=== PATIENT | female | born 1995 | race Caucasian/White ===

== ENCOUNTER → 2020-09-22 11:10 | Outpatient (BNVA) | payer OTHER, SELFPAY | PROVIDERS: PCP Internal Medicine; Visit Provider Advanced Practice Midwife ==

== ENCOUNTER → 2020-10-20 12:50 | Outpatient (BNVA) | payer OTHER, SELFPAY | PROVIDERS: PCP Internal Medicine; Visit Provider Advanced Practice Midwife | DX: Z30.42 Encounter for surveillance of injectable contraceptive (principal) | CPT/HCPCS: 96372; 99211 ==

== ENCOUNTER → 2021-01-06 14:50 | Outpatient (BNVA) | payer OTHER, SELFPAY | PROVIDERS: PCP Internal Medicine; Visit Provider Advanced Practice Midwife | DX: Z30.42 Encounter for surveillance of injectable contraceptive (principal) | CPT/HCPCS: 96372; 99211 ==

== ENCOUNTER 2021-12-28 16:02 | Outpatient (REF) | payer OTHER, SELFPAY ==
[2021-12-29 17:24] LABS: CT PCR NOT DETECTED (Not Detect.); NG PCR NOT DETECTED (Not Detect.)
== END 2021-12-28 16:03 | disposition home or self-care (01) ==
LOC: HO.LNP 16:02
PROVIDERS: Visit Provider Advanced Practice Midwife
DX: Z11.3 Encounter for screening for infections with a predominantly sexual mode of transmission (principal); Z20.2 Contact with and (suspected) exposure to infections with a predominantly sexual mode of transmission
CPT/HCPCS: 87491; 87591

== ENCOUNTER 2022-03-16 09:00 | Outpatient (REF) | payer OTHER, SELFPAY ==
[2022-03-16 09:18] LABS: MANUAL DIFF FLAG NO
[2022-03-16 09:36] LABS: Basophils Absolute Auto 0.1 X10*3/uL (0.0-0.2); Basophils Percent Auto 0.5 % (0-2); Eosinophils Absolute Auto 0.1 X10*3/uL (0.0-0.4); Hematocrit 40.6 % (37.0-47.0); Hemoglobin 13.5 g/dl (12.0-16.0); Imm Gran Abs Auto 0.04 X10*3/uL (0.00-0.03); Imm Gran Pct Auto 0.3 % (0.0-0.4); Lymphocytes Absolute Auto 1.2 X10*3/uL (1.2-4.9); Lymphocytes Percent Auto 8.9 % (20-40); Mean Corpuscular HGB Conc 33.3 g/dl (31.0-35.0); Mean Corpuscular Hemoglobin 29.3 pg (27.0-33.0); Mean Corpuscular Volume 88.3 fL (80.0-98.0); Mean Platelet Volume 10.3 fL (9.4-12.3); Monocytes Absolute Auto 0.5 X10*3/uL (0.1-1.2); Monocytes Percent Auto 3.8 % (2-11); Neutrophils Absolute Auto 11.3 x10*3/uL (2.0-8.3); Neutrophils Percent Auto 85.5 % (45-73); Platelet Count 255 X10*3/uL (160-400); Red Cell Distribution Width 13.1 % (11.0-16.0); White Blood Count 13.2 X10*3/uL (4.8-10.8)
[2022-03-16 10:35] LABS: Chloride 110 mmol/L (96-108); Potassium 4.1 mmol/L (3.3-5.1); Sodium 140 mmol/L (135-145)
[2022-03-16 10:50] LABS: Anion Gap 15 (12-20)
[2022-03-16 10:54] LABS: Alanine Aminotransferase 21 U/L (0-31); Albumin Level 3.9 g/dL (3.5-5.0); Alkaline Phosphatase 100 U/L (39-117); Aspartate Amino Transferase 16 U/L (5-31); Bilirubin Total 0.7 mg/dL (0.0-1.0); Blood Urea Nitrogen 14 mg/dL (9-16); Calcium 8.9 mg/dL (8.4-10.2); Carbon Dioxide 20 mmol/L (22-29); Cholesterol 180 mg/dL; Estimated Glomerular Filt Rate > 60; Glucose Fasting 96 mg/dL (60-99); HDL Cholesterol 37 mg/dL; LDL Cholesterol Calculated 118 mg/dl; Triglycerides 126 mg/dL
[2022-03-16 11:06] LABS: TSH reflex Free T4 1.45 uIU/mL (0.32-4.0)
[2022-03-17 08:57] LABS: Syphilis Screen Nonreactive (Nonreactive)
[2022-03-17 09:06] LABS: HBc Num1 0.08 S/CO (0.00-0.79); HIV AB/AG Nonreactive (Nonreactive); HIV Num 1 0.06 S/CO (0.00-0.99); Hepatitis B Core Antibody Nonreactive (Nonreactive); ~HepC Num1 0.06 S/CO (0.00-0.79); ~Hepatitis C Antibody Nonreactive (Nonreactive)
== END 2022-03-16 09:01 | disposition home or self-care (01) ==
LOC: HO.LAB 09:00
PROVIDERS: Absent Provider Internal Medicine; PCP Internal Medicine; Visit Provider Advanced Practice Midwife
DX: Z11.4 Encounter for screening for human immunodeficiency virus [HIV] (principal); K64.9 Unspecified hemorrhoids; K58.9 Irritable bowel syndrome, unspecified; E66.01 Morbid (severe) obesity due to excess calories; Z20.2 Contact with and (suspected) exposure to infections with a predominantly sexual mode of transmission; Z76.89 Persons encountering health services in other specified circumstances
CPT/HCPCS: 36415; 80053; 80061; 84443; 85025; 86704; 86780; 86803; 87389

== ENCOUNTER 2022-07-13 08:56 | Outpatient (REF) | payer OTHER, SELFPAY ==
[2022-07-14 04:33] LABS: Syphilis Screen Nonreactive (Nonreactive)
[2022-07-14 04:48] LABS: HIV AB/AG Nonreactive (Nonreactive); HIV Num 1 0.08 S/CO (0.00-0.99)
[2022-07-14 18:39] LABS: Herpes Simplex Type 1 IgG <0.90 index; Herpes Simplex Type 2 IgG <0.90 index
== END 2022-07-13 08:57 | disposition home or self-care (01) ==
LOC: HO.LAB 08:56
PROVIDERS: PCP Internal Medicine; Visit Provider Internal Medicine
DX: Z11.3 Encounter for screening for infections with a predominantly sexual mode of transmission (principal); Z11.4 Encounter for screening for human immunodeficiency virus [HIV]; Z20.2 Contact with and (suspected) exposure to infections with a predominantly sexual mode of transmission
CPT/HCPCS: 36415; 86695; 86696; 86780; 87389

== ENCOUNTER 2022-12-12 14:38 | Outpatient (AMB) | payer OTHER, SELFPAY ==
[2022-12-12 14:50] VITALS: BP 124/76; PULSE 95; O2SAT 98; BMI 55.5
--- NOTE | 2022-12-12 14:50 | A.OFFPC_ITS ---
Vital Signs 12/12/22 14:50 Height 5 ft 2 in Weight 303 lb 6 oz BMI 55.5 BP 124/76 Blood Pressure Location Rt radial Position Sitting Pulse 95 Pulse Source Pulse Oximeter Pulse Oximetry (%) 98 Oxygen Delivery Method Room Air Intake Visit Reasons: Hemorrhoids Allergies No Known Allergies Allergy (Verified 12/12/22 14:51) Medication List - Last Reconciled 12/12/22 by Huong Aceves MD buspirone 5 mg PO BID PRN 90 days cetirizine (Zyrtec) 10 mg PO DAILY 90 days cyclobenzaprine 5 mg PO ONCE PRN meloxicam 15 mg PO DAILY Tobacco use date assessed: 12/12/22 Dental Screening Dental Screen Date: 12/12/22 Did you have a dental visit in the last 12 months?: Yes Did you have a dental problem in the last 6 months where you did not have access to dental care?: No Was dental information given to patient?: Patient has dentist HPI Hemorrhoids HPI Details Patient is 27-year-old female with a history of hemorrhoids Having flare up, patient says that she was having bleeding initially but not anymore and it is not as uncomfortable as it was before She bought [id number] which his will pads which is helping her. She is also using preparation H. On examination she has small external hemorrhoid which does not seem to be thrombosed however exam was difficult because of body habitus I have sent rectal steroid suppositories, she may use does until back to [facility] Also Sitz baths will help with discomfort Most importantly she needs to avoid constipation by adding fiber to diet and drinking more water PFSH Medical History LGSIL on Pap smear of cervix Morbid obesity Surgical History Hx of section Family History Sister Acute Crohn's disease Sister Diabetes Social History Housing: House Alcohol intake: current Alcohol intake frequency: holidays/special occasions only Patient Tobacco Use Status: Never used Tobacco e-Cigarette/Vaping Use: Never Used service: No Current occupational status: employed Sexual orientation: Straight/Heterosexual Gender identity: Female Cognitive needs: No Hearing needs: No Vision needs: No Questionnaire Thrive Questionnaire Date Thrive assessed: 03/24/22 AUDIT C Alcohol Use Questionnaire (AUDIT-C) 1. How often do you have a drink containing alcohol?: Never 3. How often do you have six or more drinks on one occasion?: Never Total Score: 0 Score Reviewed/Action Taken: Yes MARTHA-7 AMB Questionnaire MARTHA-7 Date MARTHA - 7 assessed: 03/24/22 Source: Developed by Drs. Robert Galaviz, Jenna Gamino, Chase Fonseca and colleagues, with an educational heather from [employer]. Review of Systems Const All systems reviewed & are unremarkable except as noted in HPI and below Physical exam (Primary Care) Vital Signs: Last Vital Signs Pulse 95 12/12/22 14:50 BP 124/76 12/12/22 14:50 Pulse Ox 98 12/12/22 14:50 Oxygen Delivery Method Room Air 12/12/22 14:50 BMI result Body Mass Index 55.5 Tobacco/Smoking Status: Tobacco use Status Tobacco use date assessed 12/12/22 12/12/22 14:51 Patient Tobacco Use Status Never used Tobacco 12/12/22 14:51 e-Cigarette/Vaping Use Never Used 12/12/22 14:51 Thrive Assessment: Date of Thrive Assessment Date Thrive assessed 03/24/22 12/12/22 14:51 Const General: no acute distress Orientation/consciousness: patient oriented x3 Eyes General: appearance normal, both eyes and all related structures Resp Effort & Inspection: normal respiratory effort and able to speak in complete sentences Auscultation: clear to auscultation bilaterally GI Rectal Exam - Female: External hemorrhoid(s) present (Small nonthrombosed) Neuro General: patient oriented x3 Psych Mental Status: mental status grossly normal Assessment and Plan Assessment & Plan (1) External hemorrhoids: Code(s): K64.4 - Residual hemorrhoidal skin tags (2) Morbid obesity due to excess calories: Code(s): E66.01 - Morbid (severe) obesity due to excess calories Plan Patient is 27-year-old female with a history of hemorrhoids Having flare up, patient says that she was having bleeding initially but not anymore and it is not as uncomfortable as it was before She bought [id number] which his will pads which is helping her. She is also using preparation H. On examination she has small external hemorrhoid which does not seem to be thrombosed however exam was difficult because of body habitus Patient have a BMI of 55.5 I have sent rectal steroid suppositories, she may use does until back to baseline Also Sitz baths will help with discomfort Most importantly she needs to avoid constipation by adding fiber to diet and drinking more water Medications: New hydrocortisone acetate 25 mg IN BID 12 ea 0RF 6 days K64.4 - Residual hemorrhoidal skin tags Coding Level of Care Code Est Pt Level 3 (43111) Diagnoses External hemorrhoids K64.4 Morbid obesity due to excess calories E66.01
== END 2022-12-12 15:02 | disposition home or self-care (01) ==
PROVIDERS: PCP Internal Medicine; Visit Provider Internal Medicine
DX: K64.4 Residual hemorrhoidal skin tags (principal); E66.01 Morbid (severe) obesity due to excess calories; Z68.43 Body mass index [BMI] 50.0-59.9, adult
CPT/HCPCS: 99213

== ENCOUNTER 2023-01-03 08:28 | Outpatient (AMB) | payer OTHER, SELFPAY ==
--- NOTE | 2023-01-03 08:28 | A.OFFPC_ITS ---
Intake Visit Reasons: 6 month f/u [phone] Allergies No Known Allergies Allergy (Verified 01/03/23 08:28) Medication List - Last Reconciled 01/03/23 by Huong Aceves MD buspirone 5 mg PO BID PRN 90 days cetirizine (Zyrtec) 10 mg PO DAILY 90 days cyclobenzaprine 5 mg PO ONCE PRN hydrocortisone acetate 25 mg [place] BID 6 days meloxicam 15 mg PO DAILY Tobacco use date assessed: 01/03/23 Dental Screening Dental Screen Date: 01/03/23 Did you have a dental visit in the last 12 months?: Yes Did you have a dental problem in the last 6 months where you did not have access to dental care?: No Was dental information given to patient?: Patient has dentist HPI 6 month f/u [phone] HPI Details It is 27-year-old female who was recently seen secondary to bleeding up of hemorrhoids She says that she is feeling better now the pain is gone. Patient is making sure that she does not get constipation Anxiety: Patient is on buspirone 5 mg that she is taking 1 every day and sometimes she take it 1 more later in the day Back spasms are stable patient is on cyclobenzaprine only as needed. She also have couple of tablets of meloxicam leftover but she does not needed at this time. Allergies are stable with cetirizine She tells me that she has joined the gym and already lost 30 lb. And gym activities also helping her with anxiety Patient is morbidly obese and she is trying to lose weight. She has physical exam appointment in March she will be seen at that time. [facility] Medical History LGSIL on Pap smear of cervix Morbid obesity Surgical History Hx of section Family History Sister Acute Crohn's disease Sister Diabetes Social History Housing: House Alcohol intake: current Alcohol intake frequency: holidays/special occasions only Patient Tobacco Use Status: Never used Tobacco e-Cigarette/Vaping Use: Never Used service: No Current occupational status: employed Sexual orientation: Straight/Heterosexual Gender identity: Female Cognitive needs: No Hearing needs: No Vision needs: No Questionnaire PHQ-9 Over the last 2 weeks, how often have you been bothered by any of the following problems? 1. Little interest or pleasure in doing things: not at all 2. Feeling down, depressed, or hopeless: not at all 3. Trouble falling or staying asleep, or sleeping too much: not at all 4. Feeling tired or having little energy: not at all 5. Poor appetite or overeating: not at all 6. Feeling bad about yourself - or that you are a failure or have let yourself or your family down: not at all 7. Trouble concentrating on things, such as reading the newspaper or watching television: not at all 8. Moving or speaking so slowly that other people could have noticed. Or the opposite - being so fidgety or restless that you have been moving around a lot more than usual: not at all 9. Thoughts that you would be better off or of hurting yourself in some way: not at all Total score: 0 Depression Screening Interpretation: Negative Depression Screening Done: Yes 04669 - PHQ-9 Billing: Yes Source: Developed by Drs. Robert Galaviz, Chase Johnson and colleagues, with an educational heather from [employer]. Thrive Questionnaire Date Thrive assessed: 03/24/22 AUDIT C Alcohol Use Questionnaire (AUDIT-C) 1. How often do you have a drink containing alcohol?: Never 3. How often do you have six or more drinks on one occasion?: Never Total Score: 0 Score Reviewed/Action Taken: Yes MARTHA-7 AMB Questionnaire MARTHA-7 Date MARTHA - 7 assessed: 03/24/22 Source: Developed by Jenna Feldman Kurt Kroenke and colleagues, with an educational heather from [employer]. Review of Systems Const Denies chills and Denies fever(s) ENT Denies epistaxis and Denies nasal discharge Card Denies chest pain Resp Denies chest congestion, Denies cough and Denies hemoptysis GI Denies diarrhea and Denies nausea Skin/Breast Denies rash Neuro Reports no additional complaints Psych Reports no additional complaints Endo Reports no additional complaints Physical exam (Primary Care) Tobacco/Smoking Status: Tobacco use Status Tobacco use date assessed 01/03/23 01/03/23 08:29 Patient Tobacco Use Status Never used Tobacco 01/03/23 08:29 e-Cigarette/Vaping Use Never Used 01/03/23 08:29 Depression Screening Interpretation: Negative Thrive Assessment: Date of Thrive Assessment Date Thrive assessed 03/24/22 01/03/23 08:29 Telehealth Telehealth Location of provider rendering services: practice address Location of patient: address on file Patient Identification confirmed using: Name, : Yes Telehealth method: video Patient verbally consented to treatment: Yes Patient verbally consented to billing insurance company: Yes Patient informed of any privacy concerns related to visit: Yes Minutes spent on Phone/Video with Pt.: 14 Assessment and Plan Assessment & Plan (1) Anxiety, generalized: Code(s): F41.1 - Generalized anxiety disorder (2) Morbid obesity due to excess calories: Code(s): E66.01 - Morbid (severe) obesity due to excess calories (3) External hemorrhoids: Code(s): K64.4 - Residual hemorrhoidal skin tags (4) Environmental allergies: Code(s): Z91.09 - Other allergy status, other than to drugs and biological substances (5) Muscle spasm: Code(s): M62.838 - Other muscle spasm Plan It is 27-year-old female who was recently seen secondary to bleeding up of hemorrhoids She says that she is feeling better now the pain is gone. Patient is making sure that she does not get constipation Anxiety: Patient is on buspirone 5 mg that she is taking 1 every day and sometimes she take it 1 more later in the day Back spasms are stable patient is on cyclobenzaprine only as needed. She also have couple of tablets of meloxicam leftover but she does not needed at this time. Allergies are stable with cetirizine She tells me that she has joined the gym and already lost 30 lb. And gym activities also helping her with anxiety Patient is morbidly obese and she is trying to lose weight. She has physical exam appointment in March she will be seen at that time. Medications: Refilled hydrocortisone acetate 25 mg [place] BID 12 ea 0RF 6 days K64.4 - Residual hemorrhoidal skin tags Coding Level of Care Code Tele Est Pt Level 3 (10339) Diagnoses Anxiety, generalized F41.1 Morbid obesity due to excess calories E66.01 External hemorrhoids K64.4 Environmental allergies Z91.09 Muscle spasm M62.838
== END 2023-01-03 13:00 | disposition home or self-care (01) ==
LOC: HO.HMGC 08:28
PROVIDERS: PCP Internal Medicine; Visit Provider Internal Medicine
DX: F41.1 Generalized anxiety disorder (principal); E66.01 Morbid (severe) obesity due to excess calories; K64.4 Residual hemorrhoidal skin tags; Z91.09 Other allergy status, other than to drugs and biological substances; M62.838 Other muscle spasm
CPT/HCPCS: 99213

== ENCOUNTER 2023-02-06 10:15 | Outpatient (AMB) | payer OTHER, SELFPAY ==
--- NOTE | 2023-02-06 11:36 | MHC.OFFWIV ---
Intake Vital Signs 02/06/23 11:37 Height 5 ft 2 in Weight 295 lb BMI 54.0 BP 118/70 Blood Pressure Location Lt brachial Position Sitting Pulse 84 Pulse Source Pulse Oximeter Temp 96.8 F Temp Source Temporal Artery Scan Pulse Oximetry (%) 98 Oxygen Delivery Method Room Air Intake Visit Reasons: EP cough stuffy nose throat pain Intake Note: pt is here today for cough stuffy nose and throat pain Patient Tobacco Use Status: Never used Tobacco Allergies No Known Allergies Allergy (Verified 02/06/23 11:37) Do you need a note to return to daycare/school/sports/work: Yes HPI EP cough stuffy nose throat pain HPI Details Patient presents for a sick visit. Reporting symptoms of sinus congestion, sore throat and difficulty swallowing. Low-grade fever. No family member is sick. No recent travel. Patient reports symptoms of malaise and fatigue. [facility] Medical History LGSIL on Pap smear of cervix Morbid obesity Surgical History Hx of section Family History Sister Acute Crohn's disease Sister Diabetes Social History Housing: House Alcohol intake: current Alcohol intake frequency: holidays/special occasions only Patient Tobacco Use Status: Never used Tobacco e-Cigarette/Vaping Use: Never Used service: No Current occupational status: employed Sexual orientation: Straight/Heterosexual Gender identity: Female Cognitive needs: No Hearing needs: No Vision needs: No Physical Exam Vital Signs: Last Vital Signs Temp 96.8 F 02/06/23 11:37 Pulse 84 02/06/23 11:37 BP 118/70 02/06/23 11:37 Pulse Ox 98 02/06/23 11:37 Oxygen Delivery Method Room Air 02/06/23 11:37 BMI result Body Mass Index 54.0 Const General: cooperative and healthy appearing Nutritional Appearance: well nourished Orientation/consciousness: patient oriented x3 Limitations: no limitations HEENT Head: Yes normal to inspection Eyes General: appearance normal, both eyes and all related structures Neck Neck: Yes normal visual inspection Chest Chest palpation & inspection: normal palpation of entire chest wall Resp Effort & Inspection: normal respiratory effort Neuro General: patient oriented x3 Results AMB Rapid Strep AMB Rapid Strep Negative Last Edit by Tre Mascorro CMA on 02/06/23 11:54 Results Reviewed Results Reviewed: Laboratory Last Values Strep Scn Rapid Clinic Negative 02/06/23 11:53 Assessment & Plan Assessment & Plan (1) Upper respiratory tract infection: Code(s): J06.9 - Acute upper respiratory infection, unspecified Plan: Self-limiting illness. No antibiotics needed. If symptoms do not improve to follow-up here. Orders: Orders AMB Rapid Strep Screen Today Z13.9 - Encounter for screening, unspecified SARS-CoV2/FLU/RSV Today R43.9 - Unspecified disturbances of smell and taste Coding Level of Care Code Est Pt Level 3 (12351) Diagnoses Upper respiratory tract infection J06.9
[2023-02-06 11:37] VITALS: BP 118/70; PULSE 84; TEMP 36; O2SAT 98; BMI 54.0
== END 2023-02-06 12:39 | disposition home or self-care (01) ==
PROVIDERS: PCP Internal Medicine
DX: Z13.9 Encounter for screening, unspecified (principal); J06.9 Acute upper respiratory infection, unspecified
CPT/HCPCS: 87880; 99213

== ENCOUNTER 2023-02-06 14:03 | Outpatient (REF) | payer OTHER, SELFPAY ==
[2023-02-06 15:30] LABS: Influenza A PCR POSITIVE (Negative); Influenza B PCR NEGATIVE (Negative); Resp Syncy Virus RNA Qual PCR NEGATIVE (Negative); SARS COV2 PCR INHOUSE NEGATIVE (Negative)
== END 2023-02-06 14:04 | disposition home or self-care (01) ==
LOC: HO.HMGCLNP 14:03
PROVIDERS: Visit Provider Internal Medicine
DX: Z11.52 Encounter for screening for COVID-19 (principal); R43.9 Unspecified disturbances of smell and taste
CPT/HCPCS: 0241U

== ENCOUNTER 2023-03-21 11:54 | Outpatient (AMB) | payer OTHER, SELFPAY ==
--- NOTE | 2023-03-21 11:55 | A.OFFPC_ITS ---
Vital Signs 03/21/23 11:55 Height 5 ft 2 in Intake Visit Reasons: Referral Req~ [phone] Allergies No Known Allergies Allergy (Verified 03/21/23 11:55) Medication List - Last Reconciled 03/21/23 by Huong Aceves MD albuterol sulfate 90 mcg/actuation (ProAir HFA) 1 inh inhalation QID PRN 30 days buspirone 5 mg PO BID PRN 90 days cetirizine (Zyrtec) 10 mg PO DAILY 90 days cyclobenzaprine 5 mg PO ONCE PRN Tobacco use date assessed: 03/21/23 Dental Screening Dental Screen Date: 03/21/23 Did you have a dental visit in the last 12 months?: Yes Did you have a dental problem in the last 6 months where you did not have access to dental care?: No Was dental information given to patient?: Patient has dentist HPI Referral Req~ [phone] HPI Details Patient is 27-year-old female who suffers off and the flare-up Currently patient is having discomfort because of hemorrhoidal pain. She is requesting a script for to jaylen and a referral to Jeff Bowie at [facility] General Surgical Care I have sent cortisone anal suppositories and lidocaine cream for discomfort There is no bleeding, patient says that she is feeling slightly better today. [facility] Medical History LGSIL on Pap smear of cervix Morbid obesity Surgical History Hx of section Family History Sister Acute Crohn's disease Sister Diabetes Social History Housing: House Alcohol intake: current Alcohol intake frequency: holidays/special occasions only Patient Tobacco Use Status: Never used Tobacco e-Cigarette/Vaping Use: Never Used service: No Current occupational status: employed Sexual orientation: Straight/Heterosexual Gender identity: Female Cognitive needs: No Hearing needs: No Vision needs: No Questionnaire PHQ-9 Over the last 2 weeks, how often have you been bothered by any of the following problems? 1. Little interest or pleasure in doing things: not at all 2. Feeling down, depressed, or hopeless: not at all 3. Trouble falling or staying asleep, or sleeping too much: not at all 4. Feeling tired or having little energy: not at all 5. Poor appetite or overeating: not at all 6. Feeling bad about yourself - or that you are a failure or have let yourself or your family down: not at all 7. Trouble concentrating on things, such as reading the newspaper or watching television: not at all 8. Moving or speaking so slowly that other people could have noticed. Or the opposite - being so fidgety or restless that you have been moving around a lot more than usual: not at all 9. Thoughts that you would be better off or of hurting yourself in some way: not at all Total score: 0 Depression Screening Interpretation: Negative Depression Screening Done: Yes 25924 - PHQ-9 Billing: Yes Source: Developed by Drs. Robert Galaviz, Jenna Gamino, Chase Fonseca and colleagues, with an educational heather from [employer]. Thrive Questionnaire Date Thrive assessed: 03/21/23 I am a: Patient What is your living situation today?: I have a steady place to live Within the past 12 months, did the food you bought not last and you didn't have the money to get more?: Never true Within the past 12 months, did you worry whether your food would run out before you got money to buy more?: Never true Do you have trouble paying for medicines?: No Do you have trouble getting transportation to medical appointments?: No Do you have trouble paying your heating and electricity bill?: No Do you have trouble taking care of your child, family member or friend?: No Do you have trouble with day-to-day activities such as bathing, preparing meals, shopping, managing finances, etc.?: No Are you currently unemployed and looking for a job?: No Are you interested in more education?: No Please select the resources that you would like help with: None Currently or been in a relationship where the following occur: no concerns reported AUDIT C Alcohol Use Questionnaire (AUDIT-C) 1. How often do you have a drink containing alcohol?: Never 3. How often do you have six or more drinks on one occasion?: Never Total Score: 0 Score Reviewed/Action Taken: Yes MARTHA-7 AMB Questionnaire MARTHA-7 Date MARTHA - 7 assessed: 03/21/23 Feeling nervous, anxious, or on edge: 1 = Several days Not being able to stop or control worryin = Not at all Worrying too much about different things: 1 = Several days Trouble relaxin = Not at all Being so restless that it is hard to sit still: 0 = Not at all Becoming easily annoyed or irritable: 0 = Not at all Feeling afraid as if something awful might happen: 0 = Not at all Total MARTHA-7 score (0-4 normal; 5-9 mild; 10-14 moderate; 15-21 severe): 2 Source: Developed by Drs. Robert Galaviz, Jenna Gamino, Chase Fonseca and colleagues, with an educational heather from [employer]. MARTHA-7 Assessment Billing MARTHA-7 Assessment Tool: MARTHA-7 Assessment 69448 Review of Systems Const Denies chills and Denies fever(s) ENT Denies epistaxis and Denies nasal discharge Card Denies chest pain Resp Denies chest congestion, Denies cough and Denies hemoptysis GI Denies nausea Skin/Breast Denies rash Neuro Reports no additional complaints Psych Reports no additional complaints Endo Reports no additional complaints Physical exam (Primary Care) Tobacco/Smoking Status: Tobacco use Status Tobacco use date assessed 03/21/23 03/21/23 11:58 Patient Tobacco Use Status Never used Tobacco 03/21/23 11:58 e-Cigarette/Vaping Use Never Used 03/21/23 11:58 PHQ-9: PHQ-9 Score PHQ-9: Total score 0 03/21/23 12:12 Depression Screening Interpretation: Negative Thrive Assessment: Date of Thrive Assessment Date Thrive assessed 03/21/23 03/21/23 11:59 Currently or been in a relationship where the following occur: no concerns reported Telehealth Telehealth Location of provider rendering services: practice address Location of patient: address on file Patient Identification confirmed using: Name, : Yes Telehealth method: video Patient verbally consented to treatment: Yes Patient verbally consented to billing insurance company: Yes Patient informed of any privacy concerns related to visit: Yes Minutes spent on Phone/Video with Pt.: 13 Assessment and Plan Assessment & Plan (1) External hemorrhoids: Code(s): K64.4 - Residual hemorrhoidal skin tags Plan Patient is 27-year-old female who suffers off and the flare-up Currently patient is having discomfort because of hemorrhoidal pain. She is requesting a script for to jaylen and a referral to Jeff Bowie at [facility] General Surgical Care I have sent cortisone anal suppositories and lidocaine cream for discomfort There is no bleeding, patient says that she is feeling slightly better today. Orders: Referrals General Surgery Referral K64.4 - Residual hemorrhoidal skin tags Medications: New [donut cushion] As directed 1 ea 0RF K64.4 - Residual hemorrhoidal skin tags lidocaine-prilocaine 2.5-2.5 % 1 appl topical ONCE 30 grams 0RF 30 days [donut cushion] As directed 1 ea 0RF K64.4 - Residual hemorrhoidal skin tags hydrocortisone acetate 25 mg [place] BID 12 ea 0RF 6 days K64.4 - Residual hemorrhoidal skin tags diclofenac sodium 75 mg PO BID 20 tabs 0RF pain 10 days Coding Level of Care Code Est Pt Level 3 (93285) Diagnoses External hemorrhoids K64.4 Additional Codes MARTHA-7 Assessment Billing - MARTHA-7 Assessment Tool: MARTHA-7 Assessment [id number] ([id number])
== END 2023-03-21 13:43 | disposition home or self-care (01) ==
LOC: HO.HMGC 11:54
PROVIDERS: PCP Internal Medicine; Visit Provider Internal Medicine
DX: K64.4 Residual hemorrhoidal skin tags (principal)
CPT/HCPCS: 99213

== ENCOUNTER 2023-03-27 08:30 | Outpatient (AMB) | payer OTHER, SELFPAY ==
--- NOTE | 2023-03-27 08:33 | MHC.OFFWIV ---
Intake Intake Visit Reasons: Annual PE Patient Tobacco Use Status: Never used Tobacco Allergies No Known Allergies Allergy (Verified 03/21/23 11:55) PFSH Medical History LGSIL on Pap smear of cervix Morbid obesity Surgical History Hx of section Family History Sister Acute Crohn's disease Sister Diabetes Social History Housing: House Alcohol intake: current Alcohol intake frequency: holidays/special occasions only Patient Tobacco Use Status: Never used Tobacco e-Cigarette/Vaping Use: Never Used service: No Current occupational status: employed Sexual orientation: Straight/Heterosexual Gender identity: Female Cognitive needs: No Hearing needs: No Vision needs: No Coding
[2023-03-27 08:34] VITALS: BP 122/78; PULSE 81; O2SAT 99; BMI 53.2
--- NOTE | 2023-03-27 08:35 | MHC.PC.OV ---
Vital Signs 03/27/23 08:34 Height 5 ft 2 in Weight 291 lb BMI 53.2 BP 122/78 Blood Pressure Location Rt brachial Position Sitting Pulse 81 Pulse Oximetry (%) 99 Oxygen Delivery Method Room Air Intake Visit Reasons: Annual PE Accompanied by: Self / Same As Patient Allergies No Known Allergies Allergy (Verified 03/27/23 08:35) Medication List - Last Reconciled 03/27/23 by Huong Aceves MD albuterol sulfate 90 mcg/actuation (ProAir HFA) 1 inh inhalation QID PRN 30 days buspirone 5 mg PO BID PRN 90 days cetirizine (Zyrtec) 10 mg PO DAILY 90 days cyclobenzaprine 5 mg PO ONCE PRN diclofenac sodium 75 mg PO BID 10 days [donut cushion As directed] hydrocortisone acetate 25 mg ME BID 6 days lidocaine-prilocaine 2.5-2.5 % 1 appl topical ONCE 30 days Tobacco use date assessed: 03/21/23 Dental Screening Dental Screen Date: 03/27/23 Did you have a dental visit in the last 12 months?: Yes Did you have a dental problem in the last 6 months where you did not have access to dental care?: No Was dental information given to patient?: Patient has dentist HPI Annual PE HPI Details Patient is 27-year-old female came in today for physical examination Patient is dealing with flare-up of her hemorrhoids she has appointment with rectal specialist tomorrow she is feeling much better compared to last week OBGYN appointment coming up December of this year patient is seeing OBGYN every 2 years Pap smear and breast exam through them Lab order placed to be done fasting Patient have eczema she is requesting a cream for that which I have sent She also have a large skin tag left side and right side close to her neck which is causing irritation, Dermatology appointment request of placed. Medication patient is taking are Buspirone for anxiety Zyrtec for allergies Flexeril for muscle spasms off and on I have also sent MiraLax for her to regulate her bowels Patient have IBS which is mix diarrhea and constipation alternating Follow-up 4 months Physical exam 1 year [facility] Medical History LGSIL on Pap smear of cervix Morbid obesity Surgical History Hx of section Family History Sister Acute Crohn's disease Sister Diabetes Social History Housing: House Alcohol intake: current Alcohol intake frequency: holidays/special occasions only Patient Tobacco Use Status: Never used Tobacco e-Cigarette/Vaping Use: Never Used service: No Current occupational status: employed Sexual orientation: Straight/Heterosexual Gender identity: Female Cognitive needs: No Hearing needs: No Vision needs: No Questionnaire Thrive Questionnaire Date Thrive assessed: 03/21/23 MARTHA-7 AMB Questionnaire MARTHA-7 Date MARTHA - 7 assessed: 03/21/23 Source: Developed by Drs. Robert Galaviz, Jenna Gamino, Chase Fonseca and colleagues, with an educational heather from [employer]. Review of Systems Const Denies chills, Denies fever(s) and Denies headache(s) Eyes Denies blurry vision ENT Denies headache(s), Denies nasal discharge, Denies nasal obstruction, Denies odynophagia and Denies sinus pain Card Denies chest pain at rest and Denies chest pain with activity Resp Denies cough and Denies hemoptysis GI Denies odynophagia, Denies vomiting and Denies hematemesis Reports as per HPI Musc Denies abnormal gait Skin/Breast Reports as per HPI Neuro Denies Neuro-related abnormal movements, Denies Abnormal speech present, Denies abnormal gait, Denies headache(s) and Denies Sensory deficit (Neuro) Psych Denies mood swings and Denies paranoia Endo Reports as per HPI Daniel/Lymph Reports as per HPI Aller/Immun Reports as per HPI Physical exam (Primary Care) Vital Signs: Last Vital Signs Pulse 81 03/27/23 08:34 BP 122/78 03/27/23 08:34 Pulse Ox 99 03/27/23 08:34 Oxygen Delivery Method Room Air 03/27/23 08:34 BMI result Body Mass Index 53.2 Tobacco/Smoking Status: Tobacco use Status Tobacco use date assessed 03/21/23 03/27/23 08:38 Patient Tobacco Use Status Never used Tobacco 03/27/23 08:38 e-Cigarette/Vaping Use Never Used 03/27/23 08:38 Thrive Assessment: Date of Thrive Assessment Date Thrive assessed 03/21/23 03/27/23 08:38 Const General: cooperative, comfortable and no acute distress Orientation/consciousness: patient oriented x3 HENMT Head: Yes normocephalic and Yes atraumatic Eyes General: appearance normal, both eyes and all related structures Pupils: Equal, round and reactive pupils present EOM: EOMs intact bilaterally Neck Neck: Yes supple and No lymphadenopathy Thyroid: Thyroid normal Lymphatic: no lymphadenopathy noted Resp Effort & Inspection: normal respiratory effort and able to speak in complete sentences Auscultation: clear to auscultation bilaterally Cardio Heart sounds: S1 normal heart sound present and S2 normal heart sound present GI Palpation (GI): Soft to palpation and nontender Auscultation: normal bowel sounds General: Yes no CVA tenderness Back/Spine/Pelvis Back: no CVA tenderness Skin General skin exam: elasticity normal and turgor normal Neuro General: patient oriented x3 and gait normal Cranial nerves: Yes Equal, round and reactive pupils present Speech: No Abnormal speech present Sensory Exam: No Sensory deficit (Neuro) Coordination: tandem gait normal and Romberg test negative Extrem General: Yes normal exam except as noted and No edema Assessment and Plan Assessment & Plan (1) Encounter for general adult medical examination with abnormal findings: Code(s): Z00.01 - Encounter for general adult medical examination with abnormal findings (2) Morbid obesity due to excess calories: Code(s): E66.01 - Morbid (severe) obesity due to excess calories (3) IBS (irritable bowel syndrome): Code(s): K58.9 - Irritable bowel syndrome without diarrhea Qualifiers: Irritable bowel syndrome type: with both diarrhea and constipation Qualified Code(s): K58.2 - Mixed irritable bowel syndrome (4) Anxiety, generalized: Code(s): F41.1 - Generalized anxiety disorder (5) Muscle spasm: Code(s): M62.838 - Other muscle spasm (6) External hemorrhoids: Code(s): K64.4 - Residual hemorrhoidal skin tags (7) Intermittent asthma: Code(s): J45.20 - Mild intermittent asthma, uncomplicated Qualifiers: Asthma complication type: uncomplicated Asthma severity: mild Qualified Code(s): J45.20 - Mild intermittent asthma, uncomplicated (8) Eczema: Code(s): L30.9 - Dermatitis, unspecified Qualifiers: Eczema type: flexural Qualified Code(s): L20.82 - Flexural eczema Plan Patient is 27-year-old female came in today for physical examination Patient is dealing with flare-up of her hemorrhoids she has appointment with rectal specialist tomorrow she is feeling much better compared to last week OBGYN appointment coming up December of this year patient is seeing OBGYN every 2 years Pap smear and breast exam through them Lab order placed to be done fasting Patient have eczema she is requesting a cream for that which I have sent She also have a large skin tag left side and right side close to her neck which is causing irritation, Dermatology appointment request of placed. Medication patient is taking are Buspirone for anxiety Zyrtec for allergies Flexeril for muscle spasms off and on I have also sent MiraLax for her to regulate her bowels Patient have IBS which is mix diarrhea and constipation alternating Follow-up 4 months Physical exam 1 year Orders: Orders Complete Blood Count Auto Diff Today E66.01 - Morbid (severe) obesity due to excess calories, F41.1 - Generalized anxiety disorder, J45.20 - Mild intermittent asthma, uncomplicated, K58.9 - Irritable bowel syndrome without diarrhea, K64.4 - Residual hemorrhoidal skin tags, L30.9 - Dermatitis, unspecified, M62.838 - Other muscle spasm, Z00.01 - Encounter for general adult medical examination with abnormal findings Comprehensive Met. Panel Today E66.01 - Morbid (severe) obesity due to excess calories, F41.1 - Generalized anxiety disorder, J45.20 - Mild intermittent asthma, uncomplicated, K58.9 - Irritable bowel syndrome without diarrhea, K64.4 - Residual hemorrhoidal skin tags, L30.9 - Dermatitis, unspecified, M62.838 - Other muscle spasm, Z00.01 - Encounter for general adult medical examination with abnormal findings LDL Cholesterol Direct Today E66.01 - Morbid (severe) obesity due to excess calories, F41.1 - Generalized anxiety disorder, J45.20 - Mild intermittent asthma, uncomplicated, K58.9 - Irritable bowel syndrome without diarrhea, K64.4 - Residual hemorrhoidal skin tags, L30.9 - Dermatitis, unspecified, M62.838 - Other muscle spasm, Z00.01 - Encounter for general adult medical examination with abnormal findings TSH reflex Free T4 Today E66.01 - Morbid (severe) obesity due to excess calories, F41.1 - Generalized anxiety disorder, J45.20 - Mild intermittent asthma, uncomplicated, K58.9 - Irritable bowel syndrome without diarrhea, K64.4 - Residual hemorrhoidal skin tags, L30.9 - Dermatitis, unspecified, M62.838 - Other muscle spasm, Z00.01 - Encounter for general adult medical examination with abnormal findings Referrals Dermatology Referral D49.2 - Neoplasm of unspecified behavior of bone, soft tissue, and skin Medications: New hydrocortisone 2.5% 1 appl topical BID PRN 30 grams 3RF skin irritation 30 days polyethylene glycol 3350 (Miralax) 17 grams PO DAILY 1,530 grams 3RF 90 days Coding Level of Care Code Est Pt Prev Care 18-39y(60301) Diagnoses Encounter for general adult medical examination with abnormal findings Z00.01 Morbid obesity due to excess calories E66.01 Irritable bowel syndrome with both constipation and diarrhea K58.2 Irritable bowel syndrome type: with both diarrhea and constipation Anxiety, generalized F41.1 Muscle spasm M62.838 External hemorrhoids K64.4 Mild intermittent asthma without complication J45.20 Asthma complication type: uncomplicated Asthma severity: mild Flexural eczema L20.82 Eczema type: flexural
== END 2023-03-27 08:55 | disposition home or self-care (01) ==
PROVIDERS: Visit Provider Internal Medicine
DX: Z00.00 Encounter for general adult medical examination without abnormal findings (principal); E66.01 Morbid (severe) obesity due to excess calories; Z68.43 Body mass index [BMI] 50.0-59.9, adult; K58.2 Mixed irritable bowel syndrome; F41.1 Generalized anxiety disorder; M62.838 Other muscle spasm; K64.4 Residual hemorrhoidal skin tags; J45.20 Mild intermittent asthma, uncomplicated; L20.82 Flexural eczema
CPT/HCPCS: 99395

== ENCOUNTER 2023-03-27 08:56 | Outpatient (REF) | payer OTHER, SELFPAY ==
[2023-03-27 11:45] LABS: MANUAL DIFF FLAG NO
[2023-03-27 11:49] LABS: Basophils Percent Auto 0.7 % (0-2); Eosinophils Absolute Auto 0.1 X10*3/uL (0.0-0.4); Eosinophils Percent Auto 2.1 % (0-4); Hematocrit 39.9 % (37.0-47.0); Hemoglobin 12.9 g/dl (12.0-16.0); Imm Gran Abs Auto 0.01 X10*3/uL (0.00-0.03); Imm Gran Pct Auto 0.2 % (0.0-0.4); Lymphocytes Absolute Auto 1.1 X10*3/uL (1.2-4.9); Mean Corpuscular HGB Conc 32.3 g/dl (31.0-35.0); Mean Corpuscular Hemoglobin 29.3 pg (27.0-33.0); Mean Corpuscular Volume 90.5 fL (80.0-98.0); Mean Platelet Volume 10.9 fL (9.4-12.3); Monocytes Absolute Auto 0.2 X10*3/uL (0.1-1.2); Monocytes Percent Auto 5.5 % (2-11); Neutrophils Absolute Auto 2.8 x10*3/uL (2.0-8.3); Neutrophils Percent Auto 66.5 % (45-73); Platelet Count 218 X10*3/uL (160-400); Red Blood Count 4.41 X10*6/uL (4.20-5.50); Red Cell Distribution Width 12.9 % (11.0-16.0); White Blood Count 4.2 X10*3/uL (4.8-10.8)
[2023-03-27 12:07] LABS: Alanine Aminotransferase 21 U/L (0-31); Albumin Level 3.9 g/dL (3.5-5.0); Alkaline Phosphatase 67 U/L (39-117); Anion Gap 10 (12-20); Aspartate Amino Transferase 18 U/L (5-31); Bilirubin Total 0.4 mg/dL (0.0-1.0); Blood Urea Nitrogen 18 mg/dL (9-16); Calcium 9.2 mg/dL (8.4-10.2); Carbon Dioxide 26 mmol/L (22-29); Chloride 108 mmol/L (96-108); Estimated Glomerular Filt Rate > 60; Glucose Random 93 mg/dL (60-115); Potassium 3.8 mmol/L (3.3-5.1); Sodium 140 mmol/L (135-145); Total Protein 7.2 g/dL (6.5-8.0)
[2023-03-27 12:22] LABS: TSH reflex Free T4 2.05 uIU/mL (0.32-4.0)
[2023-03-28 06:54] LABS: LDL Cholesterol Direct 97 mg/dL (<100)
== END 2023-03-27 08:57 | disposition home or self-care (01) ==
LOC: HO.HMGCLDS 08:56
PROVIDERS: PCP Internal Medicine; Visit Provider Internal Medicine
DX: Z00.01 Encounter for general adult medical examination with abnormal findings (principal); E66.01 Morbid (severe) obesity due to excess calories; K58.9 Irritable bowel syndrome, unspecified; F41.1 Generalized anxiety disorder; M62.838 Other muscle spasm; K64.4 Residual hemorrhoidal skin tags; J45.20 Mild intermittent asthma, uncomplicated; L30.9 Dermatitis, unspecified
CPT/HCPCS: 36415; 80053; 83721; 84443; 85025

== ENCOUNTER 2023-04-19 09:47 | Outpatient (AMB) | payer OTHER, SELFPAY ==
[2023-04-19 09:54] VITALS: BP 116/70; PULSE 78; TEMP 36.4; O2SAT 98; BMI 51.2
--- NOTE | 2023-04-19 09:54 | MHC.OFFWIV ---
Intake Vital Signs 04/19/23 09:54 Height 5 ft 2 in Weight 280 lb BMI 51.2 BP 116/70 Blood Pressure Location Lt brachial Position Sitting Pulse 78 Pulse Source Pulse Oximeter Temp 97.6 F Temp Source Temporal Artery Scan Pulse Oximetry (%) 98 Oxygen Delivery Method Room Air Intake Visit Reasons: EP cough runny nose Intake Note: pt is here today for cough runny nose started 2 days ago Patient Tobacco Use Status: Never used Tobacco Allergies No Known Allergies Allergy (Verified 04/19/23 09:58) Do you need a note to return to daycare/school/sports/work: Yes HPI HPI Comments History of Present Illness Details 27 y/o female presents to walk in clinic with c/o cough and sinus congestion x 2 days. PFSH Medical History LGSIL on Pap smear of cervix Morbid obesity Surgical History Hx of section Family History Sister Acute Crohn's disease Sister Diabetes Social History Housing: House Alcohol intake: current Alcohol intake frequency: holidays/special occasions only Patient Tobacco Use Status: Never used Tobacco e-Cigarette/Vaping Use: Never Used service: No Current occupational status: employed Sexual orientation: Straight/Heterosexual Gender identity: Female Cognitive needs: No Hearing needs: No Vision needs: No Review of Systems Const All systems reviewed & are unremarkable except as noted in HPI and below Physical Exam Vital Signs: Last Vital Signs Temp 97.6 F 04/19/23 09:54 Pulse 78 04/19/23 09:54 BP 116/70 04/19/23 09:54 Pulse Ox 98 04/19/23 09:54 Oxygen Delivery Method Room Air 04/19/23 09:54 BMI result Body Mass Index 51.2 Const General: comfortable Nutritional Appearance: obese HEENT Head: Yes normocephalic Ears: external ears normal and TM's normal bilaterally General nose exam: Normal nasal mucous membranes and turbinates present Face and sinus: Yes sinuses nontender Mouth: oropharynx normal Resp Effort & Inspection: normal respiratory effort and Actively coughing Auscultation: clear to auscultation bilaterally Cardio Rate: regular rate Rhythm: regular rhythm Assessment & Plan Assessment & Plan (1) Cough in adult: Code(s): R05.9 - Cough, unspecified Plan: - OTC cough remedies - Rest - Warm fluids Orders: Orders SARS-CoV2/FLU/RSV Today R05.9 - Cough, unspecified Medications: New zcrxwukkzfcjt-OD-leiuqclvkni 5-10-100 mg/5 mL (Adult Robitussin Peak Cold M-S) 10 mL PO Q4H PRN 237 mL 0RF cough R05.9 - Cough, unspecified Coding Level of Care Code Est Pt Level 3 (46638) Diagnoses Cough in adult R05.9 Time Spent (min) 15
== END 2023-04-19 11:16 | disposition home or self-care (01) ==
PROVIDERS: PCP Internal Medicine; Visit Provider Nurse Practitioner Family
DX: R05.9 Cough, unspecified (principal)
CPT/HCPCS: 99213

== ENCOUNTER 2023-04-19 13:47 | Outpatient (REF) | payer OTHER, SELFPAY ==
[2023-04-19 14:39] LABS: Influenza A PCR NEGATIVE (Negative); Influenza B PCR NEGATIVE (Negative); Resp Syncy Virus RNA Qual PCR NEGATIVE (Negative); SARS COV2 PCR INHOUSE NEGATIVE (Negative)
== END 2023-04-19 13:48 | disposition home or self-care (01) ==
LOC: HO.HMGCLNP 13:47
PROVIDERS: Visit Provider Nurse Practitioner Family
DX: Z11.52 Encounter for screening for COVID-19 (principal); Z20.822 Contact with and (suspected) exposure to COVID-19; R05.9 Cough, unspecified
CPT/HCPCS: 0241U

== ENCOUNTER 2023-05-07 11:09 | Outpatient (AMB) | payer OTHER, SELFPAY ==
--- NOTE | 2023-05-07 11:33 | MHC.OFFWIV ---
Intake Vital Signs 05/07/23 11:43 Weight 126.099 kg BP 124/80 Blood Pressure Location Lt brachial Position Sitting Pulse 66 Pulse Source Pulse Oximeter Temp 97.5 F Temp Source Oral Pulse Oximetry (%) 98 Oxygen Delivery Method Room Air Intake Visit Reasons: EST/runny nose and cough ([phone]) Intake Note: Patient here for congestion and cough which has been present since last sunday. Patient Tobacco Use Status: Never used Tobacco Accompanied by: Self / Same As Patient Allergies No Known Allergies Allergy (Verified 05/07/23 11:34) Do you need a note to return to daycare/school/sports/work: No HPI HPI Comments History of Present Illness Details 28-year-old female presents with fatigue, malaise, myalgias, dry cough ongoing for the past 3 days. Symptoms started suddenly and have been worsening ever since. Daughter sick at home with similar symptoms. Denies fevers, chills, chest pain, shortness of breath, nausea, vomiting, abdominal pain, changes in urinary habits or bowel habits. Physical exam benign Likely viral illness versus bronchitis versus flu versus COVID versus RSV. Unlikely PE, ACS. No signs of acute respiratory distress Plan viral testing. Educated patient on diagnosis and treatment plan, answered all question, patient verbalizes understanding. At this time patient will be discharged home, advised to return with new or worsening symptoms. Educated on worrisome signs and symptoms and when to return. At this time I feel comfortable discharge home. [facility] Medical History LGSIL on Pap smear of cervix Morbid obesity Surgical History Hx of section Family History Sister Acute Crohn's disease Sister Diabetes Social History Housing: House Alcohol intake: current Alcohol intake frequency: holidays/special occasions only Patient Tobacco Use Status: Never used Tobacco e-Cigarette/Vaping Use: Never Used service: No Current occupational status: employed Sexual orientation: Straight/Heterosexual Gender identity: Female Cognitive needs: No Hearing needs: No Vision needs: No Review of Systems Const All systems reviewed & are unremarkable except as noted in HPI and below Physical Exam Vital Signs: Last Vital Signs Temp 97.5 F 05/07/23 11:43 Pulse 66 05/07/23 11:43 BP 124/80 05/07/23 11:43 Pulse Ox 98 05/07/23 11:43 Oxygen Delivery Method Room Air 05/07/23 11:43 Vital signs stable Appearance: Alert.? Oriented X3.? No acute distress.? Head: Normocephalic, atraumatic, no step-offs or deformities Eyes: Pupils equal, round and reactive to light.? Neck: Normal inspection.? Neck supple.? CVS: Normal heart rate and rhythm.? Pulses normal.? Respiratory: No respiratory distress.? Breath sounds normal.? Abdomen: Soft and nontender.? Skin: Skin warm and dry.? Normal skin color.? Normal skin turgor.? Extremities: No lower extremity edema.? No calf ttp. 5/5 strength to bilateral upper and lower extremities Neuro: Oriented X 3.? No motor deficit.? No sensory deficit. CN 2-12 intact Assessment & Plan Assessment & Plan (1) Viral illness: Code(s): B34.9 - Viral infection, unspecified Plan Take your medications as prescribed. If you were prescribed antibiotics today, it is important that you take your medication to their entirety, do not skip any doses, do not finish them early. Follow-up with your primary care provider this week. Return to the emergency department with new or worsening symptoms. Such as fevers, chills, chest pain, shortness of breath, nausea, vomiting, dizziness, headache, vision changes, lethargy In case of emergency call 911 Orders: Orders SARS-CoV2/FLU/RSV Today B34.9 - Viral infection, unspecified Coding Level of Care Code Est Pt Level 3 (34798) Diagnoses Viral illness B34.9
[2023-05-07 11:43] VITALS: BP 124/80; PULSE 66; TEMP 36.4; O2SAT 98
== END 2023-05-07 15:28 | disposition home or self-care (01) ==
PROVIDERS: PCP Internal Medicine; Visit Provider Physician Assistant
DX: B34.9 Viral infection, unspecified (principal)
CPT/HCPCS: 99213

== ENCOUNTER 2023-05-07 14:13 | Outpatient (REF) | payer OTHER, SELFPAY ==
[2023-05-07 16:06] LABS: Influenza A PCR NEGATIVE (Negative); Influenza B PCR NEGATIVE (Negative); Resp Syncy Virus RNA Qual PCR NEGATIVE (Negative); SARS COV2 PCR INHOUSE NEGATIVE (Negative)
== END 2023-05-07 14:14 | disposition home or self-care (01) ==
LOC: HO.HMGCLNP 14:13
PROVIDERS: Visit Provider Physician Assistant
DX: B34.9 Viral infection, unspecified (principal); Z11.52 Encounter for screening for COVID-19
CPT/HCPCS: 0241U

== ENCOUNTER 2023-07-27 07:56 | Outpatient (AMB) | payer OTHER, SELFPAY ==
[2023-07-27 07:57] VITALS: BP 120/82; PULSE 78; O2SAT 99; BMI 48.6
--- NOTE | 2023-07-27 07:57 | A.OFFPC_ITS ---
Vital Signs 07/27/23 07:57 Height 5 ft 2 in Weight 266 lb BMI 48.6 BP 120/82 Blood Pressure Location Rt brachial Position Sitting Pulse 78 Pulse Source Pulse Oximeter Pulse Oximetry (%) 99 Oxygen Delivery Method Room Air Intake Visit Reasons: 4 month follow up Allergies No Known Allergies Allergy (Verified 07/27/23 07:58) Medication List - Last Reconciled 07/27/23 by Huong Aceves MD albuterol sulfate 90 mcg/actuation (ProAir HFA) 1 inh inhalation QID PRN 30 days benzonatate 100 mg PO BID PRN buspirone 5 mg PO BID PRN 90 days cetirizine (Zyrtec) 10 mg PO DAILY 90 days cyclobenzaprine 5 mg PO ONCE PRN docusate sodium (Stool Softener) 500 mg (2 x 250 mg) PO BEDTIME 90 days [donut cushion As directed] polyethylene glycol 3350 (Miralax) 17 grams PO DAILY 90 days Tobacco use date assessed: 07/27/23 Dental Screening Dental Screen Date: 07/27/23 Did you have a dental visit in the last 12 months?: Yes Did you have a dental problem in the last 6 months where you did not have access to dental care?: No Was dental information given to patient?: Patient has dentist HPI 4 month follow up HPI Details Patient is 28-year-old female came in today for her regular follow-up appointment 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 She had a vomiting this morning, patient says that she does not feel sick , most likely she ate something However her work required COVID flu and RSV test for clearance Test taken Anxiety stable patient is taking buspirone 10 mg daily She had an anal fissure because of constipation, she is doing well with Colace 2-3 tablets every day Allergies are controlled with Zyrtec Patient has been having left flank pain off and on for the past 2 months She does not have any history of kidney stone, there is no dysuria, patient is not clear if pain get worse when she is moving around Sometimes it does sometimes it does not. I have ordered ultrasound of kidney to further evaluate that Medication refills sent Patient has appointment in October for follow-up [facility] Medical History LGSIL on Pap smear of cervix Morbid obesity Surgical History Hx of section Family History Sister Acute Crohn's disease Sister Diabetes Social History Housing: House Alcohol intake: current Alcohol intake frequency: holidays/special occasions only Patient Tobacco Use Status: Never used Tobacco e-Cigarette/Vaping Use: Never Used service: No Current occupational status: employed Sexual orientation: Straight/Heterosexual Gender identity: Female Cognitive needs: No Hearing needs: No Vision needs: No Questionnaire Thrive Questionnaire Date Thrive assessed: 03/21/23 MARTHA-7 AMB Questionnaire MARTHA-7 Date MARTHA - 7 assessed: 03/21/23 Source: Developed by Drs. Robert Galaviz, Jenna Gamino, Chase Fonseca and colleagues, with an educational heather from [employer]. Review of Systems Const Denies chills and Denies fever(s) ENT Denies epistaxis and Denies nasal discharge Card Denies chest pain Resp Denies chest congestion, Denies cough and Denies hemoptysis GI Denies diarrhea and Denies nausea Skin/Breast Denies rash Neuro Reports no additional complaints Psych Reports no additional complaints Endo Reports no additional complaints Physical exam (Primary Care) Vital Signs: Last Vital Signs Pulse 78 07/27/23 07:57 BP 120/82 07/27/23 07:57 Pulse Ox 99 07/27/23 07:57 Oxygen Delivery Method Room Air 07/27/23 07:57 BMI result Body Mass Index 48.6 Tobacco/Smoking Status: Tobacco use Status Tobacco use date assessed 07/27/23 07/27/23 08:02 Patient Tobacco Use Status Never used Tobacco 07/27/23 08:02 e-Cigarette/Vaping Use Never Used 07/27/23 08:02 Thrive Assessment: Date of Thrive Assessment Date Thrive assessed 03/21/23 07/27/23 08:02 Const General: cooperative, comfortable and no acute distress Orientation/consciousness: patient oriented x3 HENMT Head: Yes normocephalic Eyes General: appearance normal, both eyes and all related structures Neck Neck: Yes supple Resp Effort & Inspection: normal respiratory effort, no cough and no stridor Cardio Rhythm: regular rhythm Heart sounds: S1 normal heart sound present and S2 normal heart sound present Skin General skin exam: turgor normal Neuro General: patient oriented x3, tone normal and moves all extremities Extrem Right lower extremity: no edema Left lower extremity: no edema Assessment and Plan Assessment & Plan (1) Flank pain, acute: Code(s): R10.9 - Unspecified abdominal pain (2) Anxiety, generalized: Code(s): F41.1 - Generalized anxiety disorder (3) Constipation by delayed colonic transit: Code(s): K59.01 - Slow transit constipation (4) Vomiting: Code(s): R11.10 - Vomiting, unspecified Qualifiers: Nausea presence: unspecified Vomiting type: unspecified Qualified Code(s): R11.10 - Vomiting, unspecified Plan Patient is 28-year-old female came in today for her regular follow-up appointment 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 She had a vomiting this morning, patient says that she does not feel sick , most likely she ate something However her work required COVID flu and RSV test for clearance Test taken Anxiety stable patient is taking buspirone 10 mg daily She had an anal fissure because of constipation, she is doing well with Colace 2-3 tablets every day Allergies are controlled with Zyrtec Patient has been having left flank pain off and on for the past 2 months She does not have any history of kidney stone, there is no dysuria, patient is not clear if pain get worse when she is moving around Sometimes it does sometimes it does not. I have ordered ultrasound of kidney to further evaluate that Medication refills sent Patient has appointment in October for follow-up Orders: Orders SARS-CoV2/FLU/RSV Today R09.89 - Other specified symptoms and signs involving the circulatory and respiratory systems US renal LT Today R10.9 - Unspecified abdominal pain Medications: Refilled cetirizine (Zyrtec) 10 mg PO DAILY 90 tabs 1RF 90 days docusate sodium (Stool Softener) 500 mg (2 x 250 mg) PO BEDTIME 180 caps 0RF 90 days buspirone 5 mg PO BID PRN 180 tabs 0RF anxiety 90 days Discontinued benzonatate Discontinued Reason: Patient Completed Course 100 mg PO BID PRN 14 caps 0RF cough Coding Level of Care Code Est Pt Level 4 (10446) Diagnoses Flank pain, acute R10.9 Anxiety, generalized F41.1 Constipation by delayed colonic transit K59.01 Vomiting, unspecified vomiting type, unspecified whether nausea present R11.10 Nausea presence: unspecified Vomiting type: unspecified
== END 2023-07-27 08:35 | disposition home or self-care (01) ==
PROVIDERS: PCP Internal Medicine; Visit Provider Internal Medicine
DX: R10.9 Unspecified abdominal pain (principal); F41.1 Generalized anxiety disorder; K59.01 Slow transit constipation; R11.10 Vomiting, unspecified
CPT/HCPCS: 99214

== ENCOUNTER 2023-07-27 10:27 | Outpatient (REF) | payer OTHER, SELFPAY ==
[2023-07-27 11:20] LABS: Influenza A PCR NEGATIVE (Negative); Influenza B PCR NEGATIVE (Negative); Resp Syncy Virus RNA Qual PCR NEGATIVE (Negative); SARS COV2 PCR INHOUSE NEGATIVE (Negative)
== END 2023-07-27 10:28 | disposition home or self-care (01) ==
LOC: HO.LNP 10:27
PROVIDERS: Visit Provider Internal Medicine
DX: R09.89 Other specified symptoms and signs involving the circulatory and respiratory systems (principal)
CPT/HCPCS: 0241U

== ENCOUNTER 2023-08-29 09:57 | Outpatient (REF) | payer OTHER, SELFPAY ==
--- NOTE | ~2023-08-29 | US_ITS ---
EXAMINATION: US RETROPERITONEAL LIMITED (RENAL ONLY) CLINICAL INFORMATION: Unspecified abdominal pain. Acute left flank pain. COMPARISON: CT abdomen and pelvis 02/08/2016. Ultrasound abdomen complete 02/28/2014. TECHNIQUE: Real-time imaging of the kidneys. FINDINGS: RIGHT KIDNEY: 10.8 x 4.2 x 5.7 cm (SAG x AP x TRV). The kidney is normal in size, contour, and echogenicity. Renal cortical thickness is normal. No calculi or focal parenchymal lesions. No hydronephrosis. LEFT KIDNEY: 11.3 x 4.6 x 5.6 cm (SAG x AP x TRV). The kidney is normal in size, contour, and echogenicity. Renal cortical thickness is normal. No calculi or focal parenchymal lesions. No hydronephrosis. US/US renal BI IMPRESSION: Normal renal ultrasound. No visible nephrolithiasis or hydronephrosis.
== END 2023-08-29 09:58 | disposition home or self-care (01) ==
LOC: HO.HMGCX 09:57
PROVIDERS: PCP Internal Medicine; Visit Provider Internal Medicine
DX: R10.9 Unspecified abdominal pain (principal)
CPT/HCPCS: 76775

== ENCOUNTER 2023-10-18 08:06 | Outpatient (AMB) | payer OTHER, SELFPAY ==
--- NOTE | 2023-10-18 08:56 | MHC.PC.OV ---
Intake Visit Reasons: Discuss Anxiety [phone] Allergies No Known Allergies Allergy (Verified 10/18/23 08:56) Medication List - Last Reconciled 10/18/23 by Huong Aceves MD albuterol sulfate 90 mcg/actuation (ProAir HFA) 1 inh inhalation QID PRN 30 days buspirone 10 mg PO TID PRN 90 days cetirizine (Zyrtec) 10 mg PO DAILY 90 days cyclobenzaprine 5 mg PO ONCE PRN docusate sodium (Stool Softener) 500 mg (2 x 250 mg) PO BEDTIME 90 days [donut cushion As directed] polyethylene glycol 3350 (Miralax) 17 grams PO DAILY 90 days Tobacco use date assessed: 10/18/23 Dental Screening Dental Screen Date: 10/18/23 Did you have a dental visit in the last 12 months?: Yes Did you have a dental problem in the last 6 months where you did not have access to dental care?: No Was dental information given to patient?: Patient has dentist HPI Discuss Anxiety [phone] HPI Details Patient is 28 year old female who was doing well on Buspar but lately her anxiety has gotten worse, even the 30 mg of buspar is not controlling it patient says that high dose is giving her JOSEPH her Mom in Jan of last year patient was living with her, but now the house need to be sold and she dont have a place to live she is trying to find a place but at time she get very emotional and having difficulty at work she is to taper off the buspar by taking 20 mg for a week , then 10 for a week and then stop i have sent Venlafaxin 37.5 mg for her to be taken one in am and Lorazepam .5 mg pRN side effect of Lorazepam were discussed, it will cause drawsiness so she is to take one during weekend when she is home to see how she respond she may take only half if needed she has f/u apt end fo this month PFSH Medical History LGSIL on Pap smear of cervix Morbid obesity Surgical History Hx of section Family History Sister Acute Crohn's disease Sister Diabetes Social History Housing: House Alcohol intake: current Alcohol intake frequency: holidays/special occasions only Patient Tobacco Use Status: Never used Tobacco e-Cigarette/Vaping Use: Never Used service: No Current occupational status: employed Sexual orientation: Straight/Heterosexual Gender identity: Female Cognitive needs: No Hearing needs: No Vision needs: No Questionnaire Thrive Questionnaire Date Thrive assessed: 03/21/23 AUDIT C Alcohol Use Questionnaire (AUDIT-C) 1. How often do you have a drink containing alcohol?: Never 3. How often do you have six or more drinks on one occasion?: Never Total Score: 0 Score Reviewed/Action Taken: Yes MARTHA-7 AMB Questionnaire MARTHA-7 Date MARTHA - 7 assessed: 03/21/23 Source: Developed by Drs. Robert Galaviz, Jenna Gamino, Chase Fonseca and colleagues, with an educational heather from [employer]. Review of Systems Const Denies chills and Denies fever(s) ENT Denies epistaxis and Denies nasal discharge Card Denies chest pain Resp Denies chest congestion, Denies cough and Denies hemoptysis GI Denies diarrhea and Denies nausea Skin/Breast Denies rash Neuro Reports no additional complaints Psych Reports no additional complaints Endo Reports no additional complaints Physical exam (Primary Care) Tobacco/Smoking Status: Tobacco use Status Tobacco use date assessed 10/18/23 10/18/23 08:57 Patient Tobacco Use Status Never used Tobacco 10/18/23 08:57 e-Cigarette/Vaping Use Never Used 10/18/23 08:57 Thrive Assessment: Date of Thrive Assessment Date Thrive assessed 03/21/23 10/18/23 08:57 Telehealth Telehealth Telehealth Platform: [facility] Location of provider rendering services: practice address Location of patient: address on file Patient Identification confirmed using: Name, : Yes Telehealth method: voice only Patient verbally consented to treatment: Yes Patient verbally consented to billing insurance company: Yes Patient informed of any privacy concerns related to visit: Yes Minutes spent on Phone/Video with Pt.: 13 Assessment and Plan Assessment & Plan (1) Anxiety, generalized: Code(s): F41.1 - Generalized anxiety disorder (2) Major depressive disorder: Code(s): F32.9 - Major depressive disorder, single episode, unspecified Qualifiers: Major depression recurrence: single episode Active/Remission status: currently active Major depression episode severity: mild Qualified Code(s): F32.0 - Major depressive disorder, single episode, mild Plan Patient is 28 year old female who was doing well on Buspar but lately her anxiety has gotten worse, even the 30 mg of buspar is not controlling it patient says that high dose is giving her JOSEPH her Mom in Jan of last year patient was living with her, but now the house need to be sold and she dont have a place to live she is trying to find a place but at time she get very emotional and having difficulty at work she is to taper off the buspar by taking 20 mg for a week , then 10 for a week and then stop she has started feeling depressed as well, but no Psychotic features or suicidal thoughts i have sent Venlafaxin 37.5 mg for her to be taken one in am and Lorazepam .5 mg pRN side effect of Lorazepam were discussed, it will cause drawsiness so she is to take one during weekend when she is home to see how she respond she may take only half if needed she has f/u apt end fo this month Medications: New venlafaxine ER 37.5 mg PO DAILY 30 caps 0RF lorazepam 0.5 mg PO DAILY 30 days PRN 30 tabs 0RF anxiety Discontinued buspirone Discontinued Reason: Doctor's Order 10 mg PO TID 90 days PRN 180 tabs 0RF anxiety Coding Level of Care Code Tele Est Pt Level 3 (40364) Diagnoses Anxiety, generalized F41.1 Current mild episode of major depressive disorder without prior episode F32.0 Major depression recurrence: single episode Active/Remission status: currently active Major depression episode severity: mild
== END 2023-10-18 09:35 | disposition home or self-care (01) ==
LOC: HO.HMGC 08:06
PROVIDERS: PCP Internal Medicine; Visit Provider Internal Medicine
DX: F32.0 Major depressive disorder, single episode, mild (principal); F41.1 Generalized anxiety disorder
CPT/HCPCS: 99213

== ENCOUNTER 2023-11-09 07:59 | Outpatient (AMB) | payer OTHER, SELFPAY ==
--- NOTE | 2023-11-09 08:03 | A.OFFPC_ITS ---
Vital Signs 11/09/23 08:04 Height 5 ft 2 in Weight 265 lb BMI 48.5 BP 106/66 Blood Pressure Location Rt brachial Position Sitting Pulse 77 Pulse Source Pulse Oximeter Pulse Oximetry (%) 99 Oxygen Delivery Method Room Air Intake Visit Reasons: 4 month follow up Allergies No Known Allergies Allergy (Verified 11/09/23 08:05) Medication List - Last Reconciled 11/09/23 by Huong Aceves MD albuterol sulfate 90 mcg/actuation (ProAir HFA) 1 inh inhalation QID PRN 30 days cetirizine (Zyrtec) 10 mg PO DAILY 90 days docusate sodium (Stool Softener) 500 mg (2 x 250 mg) PO BEDTIME 90 days [donut cushion As directed] lorazepam 0.5 mg PO DAILY PRN 30 days polyethylene glycol 3350 (Miralax) 17 grams PO DAILY 90 days Tobacco use date assessed: 10/18/23 Dental Screening Dental Screen Date: 10/18/23 HPI 4 month follow up HPI Details Patient is 28 year old female Going through stressful time at home Has lost her residence She did well with buspirone for a while but increasing dose caused headache so she stopped I started her on venlafaxine which caused increase in appetite patient is already morbidly obese However medication did help, according to patient she was able to focus and work better with the medication However did not have the motivation to get up and go exercise and she was not very mindful about her food choices while taking this medication So she stopped She took lorazepam this morning and did well I sent in few tablets of lorazepam 0.5 mg I am starting her on Topamax She is to start Topamax 25 once a day for 7 days then b.i.d. Currently she is sharing the residence with her sister who lives with her 2 kids and her father her Mom in Jan patient was living with her, but now the house need to be sold Patient will stay in touch with me regarding Topamax affect. Follow-up 3 months PFS Medical History LGSIL on Pap smear of cervix Morbid obesity Surgical History Hx of section Family History Sister Acute Crohn's disease Sister Diabetes Social History Housing: House Alcohol intake: current Alcohol intake frequency: holidays/special occasions only Patient Tobacco Use Status: Never used Tobacco e-Cigarette/Vaping Use: Never Used service: No Current occupational status: employed Sexual orientation: Straight/Heterosexual Gender identity: Female Cognitive needs: No Hearing needs: No Vision needs: No Questionnaire PHQ-9 Over the last 2 weeks, how often have you been bothered by any of the following problems? 1. Little interest or pleasure in doing things: several days 2. Feeling down, depressed, or hopeless: not at all 3. Trouble falling or staying asleep, or sleeping too much: several days 4. Feeling tired or having little energy: not at all 5. Poor appetite or overeating: not at all 6. Feeling bad about yourself - or that you are a failure or have let yourself or your family down: not at all 7. Trouble concentrating on things, such as reading the newspaper or watching television: not at all 8. Moving or speaking so slowly that other people could have noticed. Or the opposite - being so fidgety or restless that you have been moving around a lot more than usual: not at all 9. Thoughts that you would be better off or of hurting yourself in some way: not at all Total score: 2 Depression Screening Interpretation: Negative Depression Screening Done: Yes Source: Developed by Drs. Robert Galaviz, Jenna Gamino, Chase Fonseca and colleagues, with an educational heather from [employer]. Thrive Questionnaire Date Thrive assessed: 11/06/23 I am a: Patient What is your living situation today?: I do not have a steady places to live I am temporarily staying with others Within the past 12 months, did the food you bought not last and you didn't have the money to get more?: Never true Within the past 12 months, did you worry whether your food would run out before you got money to buy more?: Never true Do you have trouble paying for medicines?: No Do you have trouble getting transportation to medical appointments?: No Do you have trouble paying your heating and electricity bill?: No Do you have trouble taking care of your child, family member or friend?: No Do you have trouble with day-to-day activities such as bathing, preparing meals, shopping, managing finances, etc.?: No Are you currently unemployed and looking for a job?: No Are you interested in more education?: No Please select the resources that you would like help with: None Currently or been in a relationship where the following occur: I choose not to answer THRIVE Score: 1 AUDIT C Alcohol Use Questionnaire (AUDIT-C) 1. How often do you have a drink containing alcohol?: Monthly or less 2. How many drinks containing alcohol do you have on a typical day when you are drinking?: 1 or 2 3. How often do you have six or more drinks on one occasion?: Never Total Score: 1 MARTHA-7 AMB Questionnaire MARTHA-7 Date MARTHA - 7 assessed: 03/21/23 Feeling nervous, anxious, or on edge: 1 = Several days Not being able to stop or control worryin = Several days Worrying too much about different things: 1 = Several days Trouble relaxin = Not at all Being so restless that it is hard to sit still: 0 = Not at all Becoming easily annoyed or irritable: 1 = Several days Feeling afraid as if something awful might happen: 1 = Several days Total MARTHA-7 score (0-4 normal; 5-9 mild; 10-14 moderate; 15-21 severe): 5 Source: Developed by Drs. Robert Galvaiz, Jenna Gamino, Chase Fonseca and colleagues, with an educational heather from [employer]. Review of Systems Const Denies chills and Denies fever(s) ENT Denies epistaxis and Denies nasal discharge Card Denies chest pain Resp Denies chest congestion, Denies cough and Denies hemoptysis GI Denies diarrhea and Denies nausea Skin/Breast Denies rash Neuro Reports no additional complaints Psych Reports no additional complaints Endo Reports no additional complaints Physical exam (Primary Care) Vital Signs: Last Vital Signs Pulse 77 11/09/23 08:04 BP 106/66 11/09/23 08:04 Pulse Ox 99 11/09/23 08:04 Oxygen Delivery Method Room Air 11/09/23 08:04 BMI result Body Mass Index 48.5 Tobacco/Smoking Status: Tobacco use Status Tobacco use date assessed 10/18/23 11/09/23 08:07 Patient Tobacco Use Status Never used Tobacco 11/09/23 08:07 e-Cigarette/Vaping Use Never Used 11/09/23 08:07 PHQ-9: PHQ-9 Score PHQ-9: Total score 2 11/09/23 08:07 Depression Screening Interpretation: Negative Thrive Assessment: Date of Thrive Assessment Date Thrive assessed 11/06/23 11/09/23 08:07 Currently or been in a relationship where the following occur: I choose not to answer Const General: cooperative, comfortable and no acute distress Orientation/consciousness: patient oriented x3 HENMT Head: Yes normocephalic Eyes General: appearance normal, both eyes and all related structures Neck Neck: Yes supple Resp Effort & Inspection: normal respiratory effort, no cough and no stridor Cardio Rhythm: regular rhythm Heart sounds: S1 normal heart sound present and S2 normal heart sound present Skin General skin exam: turgor normal Neuro General: patient oriented x3, tone normal and moves all extremities Extrem Right lower extremity: no edema Left lower extremity: no edema Assessment and Plan Assessment & Plan (1) Major depressive disorder: Code(s): F32.9 - Major depressive disorder, single episode, unspecified Qualifiers: Active/Remission status: currently active Major depression episode severity: mild Major depression recurrence: single episode Qualified Code(s): F32.0 - Major depressive disorder, single episode, mild (2) Constipation by delayed colonic transit: Code(s): K59.01 - Slow transit constipation (3) Intermittent asthma: Code(s): J45.20 - Mild intermittent asthma, uncomplicated Qualifiers: Asthma complication type: uncomplicated Asthma severity: mild Qualified Code(s): J45.20 - Mild intermittent asthma, uncomplicated (4) Muscle spasm: Code(s): M62.838 - Other muscle spasm (5) Anxiety, generalized: Code(s): F41.1 - Generalized anxiety disorder (6) Environmental allergies: Code(s): Z91.09 - Other allergy status, other than to drugs and biological substances (7) Morbid obesity due to excess calories: Code(s): E66.01 - Morbid (severe) obesity due to excess calories (8) IBS (irritable bowel syndrome): Code(s): K58.9 - Irritable bowel syndrome without diarrhea Qualifiers: Irritable bowel syndrome type: with both diarrhea and constipation Qualified Code(s): K58.2 - Mixed irritable bowel syndrome (9) Hemorrhoids: Code(s): K64.9 - Unspecified hemorrhoids Qualifiers: Hemorrhoid type: first degree Qualified Code(s): K64.0 - First degree hemorrhoids Plan Patient is 28 year old female Going through stressful time at home Has lost her residence She did well with buspirone for a while but increasing dose caused headache so she stopped I started her on venlafaxine which caused increase in appetite patient is already morbidly obese However medication did help, according to patient she was able to focus and work better with the medication However did not have the motivation to get up and go exercise and she was not very mindful about her food choices while taking this medication So she stopped She took lorazepam this morning and did well I sent in few tablets of lorazepam 0.5 mg I am starting her on Topamax She is to start Topamax 25 once a day for 7 days then b.i.d. Currently she is sharing the residence with her sister who lives with her 2 kids and her father her Mom in Jan patient was living with her, but now the house need to be sold Patient will stay in touch with me regarding Topamax affect. Constipation is stable patient is requesting refill on her medication Allergies are stable Follow-up 3 casandra Orders: Orders Complete Blood Count Auto Diff Today E66.01 - Morbid (severe) obesity due to excess calories, F32.0 - Major depressive disorder, single episode, mild, F41.1 - Generalized anxiety disorder, J45.20 - Mild intermittent asthma, uncomplicated, K58.2 - Mixed irritable bowel syndrome, K59.01 - Slow transit constipation, K64.9 - Unspecified hemorrhoids, M62.838 - Other muscle spasm, Z91.09 - Other allergy status, other than to drugs and biological substances Comprehensive Met. Panel Today E66.01 - Morbid (severe) obesity due to excess calories, F32.0 - Major depressive disorder, single episode, mild, F41.1 - Generalized anxiety disorder, J45.20 - Mild intermittent asthma, uncomplicated, K58.2 - Mixed irritable bowel syndrome, K59.01 - Slow transit constipation, K64.9 - Unspecified hemorrhoids, M62.838 - Other muscle spasm, Z91.09 - Other allergy status, other than to drugs and biological substances TSH reflex Free T4 Today E66.01 - Morbid (severe) obesity due to excess calories, F32.0 - Major depressive disorder, single episode, mild, F41.1 - Generalized anxiety disorder, J45.20 - Mild intermittent asthma, uncomplicated, K58.2 - Mixed irritable bowel syndrome, K59.01 - Slow transit constipation, K64.9 - Unspecified hemorrhoids, M62.838 - Other muscle spasm, Z91.09 - Other allergy status, other than to drugs and biological substances Hemoglobin A1c Today E66.01 - Morbid (severe) obesity due to excess calories, F32.0 - Major depressive disorder, single episode, mild, F41.1 - Generalized anxiety disorder, J45.20 - Mild intermittent asthma, uncomplicated, K58.2 - Mixed irritable bowel syndrome, K59.01 - Slow transit constipation, K64.9 - Unspecified hemorrhoids, M62.838 - Other muscle spasm, Z91.09 - Other allergy status, other than to drugs and biological substances Vitamin D 25-OH (D2 and D3) Today E66.01 - Morbid (severe) obesity due to excess calories, F32.0 - Major depressive disorder, single episode, mild, F41.1 - Generalized anxiety disorder, J45.20 - Mild intermittent asthma, uncomplicat ed, K58.2 - Mixed irritable bowel syndrome, K59.01 - Slow transit constipation, K64.9 - Unspecified hemorrhoids, M62.838 - Other muscle spasm, Z91.09 - Other allergy status, other than to drugs and biological substances LDL Cholesterol Direct Today E66.01 - Morbid (severe) obesity due to excess calories, F32.0 - Major depressive disorder, single episode, mild, F41.1 - Ge neralized anxiety disorder, J45.20 - Mild intermittent asthma, uncomplicated, K58.2 - Mixed irritable bowel syndrome, K59.01 - Slow transit constipation, K64.9 - Unspecified hemorrhoids, M62.838 - Other muscle spasm, Z91.09 - Other allergy status, other than to drugs and biological substances Medications: New topiramate (Topamax) Take 1 tablet daily for a week and then 2 times a day 12 hours apart 25 mg PO BID 60 tabs 0RF Refilled docusate sodium (Stool Softener) 500 mg (2 x 250 mg) PO BEDTIME 90 days 180 caps 0RF lorazepam 0.5 mg PO DAILY 30 days PRN 30 tabs 0RF anxiety Coding Level of Care Code Est Pt Level 4 (41796) Complex EM visit Add On G2211 Diagnoses Current mild episode of major depressive disorder without prior episode F32.0 Active/Remission status: currently active Major depression episode severity: mild Major depression recurrence: single episode Constipation by delayed colonic transit K59.01 Mild intermittent asthma without complication J45.20 Asthma complication type: uncomplicated Asthma severity: mild Muscle spasm M62.838 Anxiety, generalized F41.1 Environmental allergies Z91.09 Morbid obesity due to excess calories E66.01 Irritable bowel syndrome with both constipation and diarrhea K58.2 Irritable bowel syndrome type: with both diarrhea and constipation Grade I hemorrhoids K64.0 Hemorrhoid type: first degree
[2023-11-09 08:04] VITALS: BP 106/66; PULSE 77; O2SAT 99; BMI 48.5
== END 2023-11-09 08:27 | disposition home or self-care (01) ==
PROVIDERS: PCP Internal Medicine; Visit Provider Internal Medicine
DX: J45.20 Mild intermittent asthma, uncomplicated (principal); F32.0 Major depressive disorder, single episode, mild; E66.01 Morbid (severe) obesity due to excess calories; Z68.42 Body mass index [BMI] 45.0-49.9, adult; K59.01 Slow transit constipation; M62.838 Other muscle spasm; F41.1 Generalized anxiety disorder; Z91.09 Other allergy status, other than to drugs and biological substances; K58.2 Mixed irritable bowel syndrome; K64.0 First degree hemorrhoids
CPT/HCPCS: 99214; G2211

== ENCOUNTER 2023-11-09 08:29 | Outpatient (REF) | payer OTHER, SELFPAY ==
[2023-11-09 09:59] LABS: MANUAL DIFF FLAG NO
[2023-11-09 10:08] LABS: Basophils Absolute Auto 0.1 X10*3/uL (0.0-0.2); Eosinophils Absolute Auto 0.1 X10*3/uL (0.0-0.4); Eosinophils Percent Auto 1.7 % (0-4); Hematocrit 38.6 % (37.0-47.0); Hemoglobin 12.7 g/dl (12.0-16.0); Imm Gran Abs Auto 0.01 X10*3/uL (0.00-0.03); Imm Gran Pct Auto 0.2 % (0.0-0.4); Lymphocytes Absolute Auto 1.2 X10*3/uL (1.2-4.9); Lymphocytes Percent Auto 24.3 % (20-40); Mean Corpuscular HGB Conc 32.9 g/dl (31.0-35.0); Mean Corpuscular Hemoglobin 30.1 pg (27.0-33.0); Mean Corpuscular Volume 91.5 fL (80.0-98.0); Mean Platelet Volume 10.3 fL (9.4-12.3); Monocytes Absolute Auto 0.2 X10*3/uL (0.1-1.2); Neutrophils Absolute Auto 3.2 x10*3/uL (2.0-8.3); Neutrophils Percent Auto 67.8 % (45-73); Platelet Count 230 X10*3/uL (160-400); Red Blood Count 4.22 X10*6/uL (4.20-5.50); Red Cell Distribution Width 13.1 % (11.0-16.0); White Blood Count 4.8 X10*3/uL (4.8-10.8)
[2023-11-09 10:38] LABS: Alanine Aminotransferase 22 U/L (0-31); Albumin Level 3.9 g/dL (3.5-5.0); Alkaline Phosphatase 77 U/L (39-117); Anion Gap 9 (12-20); Aspartate Amino Transferase 19 U/L (5-31); Bilirubin Total 0.5 mg/dL (0.0-1.0); Blood Urea Nitrogen 19 mg/dL (9-16); Calcium 8.9 mg/dL (8.4-10.2); Carbon Dioxide 25 mmol/L (22-29); Chloride 109 mmol/L (96-108); Estimated Glomerular Filt Rate > 60; Glucose Random 93 mg/dL (60-115); Potassium 4.3 mmol/L (3.3-5.1); Sodium 139 mmol/L (135-145)
[2023-11-09 11:02] LABS: TSH reflex Free T4 1.98 uIU/mL (0.32-4.0)
[2023-11-09 12:27] LABS: Estimated Average Glucose 97 mg/dL
[2023-11-11 10:33] LABS: LDL Cholesterol Direct 126 mg/dL (<100)
[2023-11-15 15:13] LABS: Vitamin D 25-OH, D2 <4 ng/mL; Vitamin D 25-OH, D3 25 ng/mL; Vitamin D 25-OH, Total 25 ng/mL (30-100)
== END 2023-11-09 08:30 | disposition home or self-care (01) ==
LOC: HO.HMGCLDS 08:29
PROVIDERS: PCP Internal Medicine; Visit Provider Internal Medicine
DX: F32.0 Major depressive disorder, single episode, mild (principal); K59.01 Slow transit constipation; J45.20 Mild intermittent asthma, uncomplicated; M62.838 Other muscle spasm; F41.1 Generalized anxiety disorder; Z91.09 Other allergy status, other than to drugs and biological substances; E66.01 Morbid (severe) obesity due to excess calories; K58.2 Mixed irritable bowel syndrome; K64.9 Unspecified hemorrhoids
CPT/HCPCS: 36415; 80053; 82306; 83036; 83721; 84443; 85025

== ENCOUNTER 2024-01-08 07:42 | Outpatient (AMB) | payer OTHER, SELFPAY ==
--- NOTE | 2024-01-08 07:48 | MHC.OFFVIS ---
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 Doing well with no concerns: recent use of Plan B, UPT is negative today. She declines control due to side effects including weight gain. She is interested in a future . Not interested in taking vitamins. She tries to eat healthy and stays active with exercise, she lost 76lbs. in the last two years with diet and exercise. Regular monthly menses. Currently is sexually active. She denies vaginal itching and irritation. STI screening offered; she accepts. Denies family history of breast, ovarian or colon cancer. Last pap smear 2019, negative. 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 [employer] Sexual orientation: Straight/Heterosexual Gender identity: Female Cognitive needs: No Hearing needs: No Vision needs: No Female Reproductive History Menstrual Duration of menses: 3-5 days Date of last menstrual period: 01/02/24 control method: none Total pregnancies: 1 Full term: 1 Number of Living Children: 1 Date of last pap smear: 09/17/19 (neg) History of abnormal pap smear: Yes (08/25 lgsil 10/26 ascus +hpv 03/30 neg) Review of Systems Const All systems reviewed & are unremarkable except as noted in HPI and below Reports as per HPI Eyes Reports no additional complaints ENT Reports no additional complaints Card Reports no additional complaints Resp Reports no additional complaints GI Reports as per [facility] and Reports no additional complaints Reports as per HPI Musc Reports no additional complaints Skin/Breast Reports as per HPI Neuro Reports no additional complaints Psych Reports no additional complaints Endo Reports no additional complaints Daneil/Lymph Reports no additional complaints Aller/Immun Reports no additional complaints Physical Exam Const General: cooperative, healthy appearing, no acute distress, well developed and alert Orientation/consciousness: patient oriented x3 HEENT Head: Yes normal to inspection Eyes General: appearance normal, both eyes and all related structures Neck Neck: Yes normal visual inspection Thyroid: Thyroid normal Chest Chest palpation & inspection: normal inspection of the chest and other (no puckering, dimpling, peau de orange, retraction, discharge, masses) Breast/axilla inspection: normal inspection of the breasts Breast/axilla palpation: normal palpation of the breasts Resp Effort & Inspection: normal respiratory effort GI Inspection: Yes normal to inspection Palpation (GI): Soft to palpation Rectal Exam - Female: deferred General: Yes bladder normal to palpation External Female Exam: normal external appearance and normal appearance of the urethra Speculum Exam - Vagina: normal appearance of the vagina, normal palpation and normal vaginal discharge Speculum Exam - Cervix: normal appearance of the cervix and normal palpation Bimanual exam- vagina & uterus: normal bimanual exam, normal palpation, uterine size normal, bladder normal to palpation, normal palpation and non-tender Bimanual Exam- Adnexa, other: no masses Skin General skin exam: no rashes or lesions noted Rashes: no rashes Neuro General: patient oriented x3 Cognition (Neuro): normal cognition Extrem General: Yes normal to inspection Psych Attitude: cooperative Thought process: Normal thought process present Results AMB Test Urine AMB Test Urine Negative Last Edit by CORBY Singh on 01/08/24 08:01 Assessment & Plan Assessment & Plan (1) Encounter for well woman exam with routine gynecological exam: Code(s): Z01.419 - Encounter for gynecological examination (general) (routine) without abnormal findings Category: Medical Plan Discussed: Current recommendations for pap smears per ASCCP guidelines. Pap smear obtained. GC chlamydia and BV panel obtained. Plans STI screening blood work. Breast awareness and periodic breast exams. Maintain a healthy lifestyle including a well balanced diet and routine exercise. Use condoms for STI and prevention. Benefits of folic acid 400mcg qd for prevention of neural tube defects, start with a multi women's vitamin prior to planning. Patient verbalizes understanding and agrees to the plan of care. She was given opportunity to ask questions and all questions were answered to the best of my ability. RTO in one year for annual identification printing machine setter examination. This note is constructed using voice recognition software. While every effort has been made to ensure accuracy, systems design engineer errors may have been included. Orders: Orders AMB HCG Urine Test Today Z32.02 - Encounter for test, result negative Hepatitis C Antibody Reflex Today Z20.2 - Contact with and (suspected) exposure to infections with a predominantly sexual mode of transmission Syphilis Screen Today Z20.2 - Contact with and (suspected) exposure to infections with a predominantly sexual mode of transmission PAP + HPV E6/E7 rfx 18/45 Today Z01.419 - Encounter for gynecological examination (general) (routine) without abnormal findings HIV Ab/Ag Today Z20.2 - Contact with and (suspected) exposure to infections with a predominantly sexual mode of transmission Hepatitis B Core Antibody Today Z20.2 - Contact with and (suspected) exposure to infections with a predominantly sexual mode of transmission Bacterial Vaginosis Panel Today Z20.2 - Contact with and (suspected) exposure to infections with a predominantly sexual mode of transmission CT NG by PCR Today Z20.2 - Contact with and (suspected) exposure to infections with a predominantly sexual mode of transmission Coding Level of Care Code Est Pt Prev Care 18-39y([id number]) Diagnoses Encounter for well woman exam with routine gynecological exam Z01.419
[2024-01-08 07:50] VITALS: BP 110/76; BMI 48.3
== END 2024-01-08 08:28 | disposition home or self-care (01) ==
LOC: HO.HWS 07:42
PROVIDERS: PCP Internal Medicine; Visit Provider Advanced Practice Midwife
DX: Z01.419 Encounter for gynecological examination (general) (routine) without abnormal findings (principal); Z32.02 Encounter for pregnancy test, result negative
CPT/HCPCS: 99395

== ENCOUNTER 2024-01-08 07:42 | Outpatient (REF) | payer OTHER, SELFPAY ==
[2024-01-09 13:19] LABS: Bacterial Vaginosis PCR POSITIVE (Negative); Candida Group PCR NOT DETECTED (Not Detect); Candida glab krusei PCR NOT DETECTED (Not Detect); Trichomonas vaginalis PCR NOT DETECTED (Not Detect)
[2024-01-12 18:23] LABS: HPV mRNA E6/E7 Not Detected (Not Detected)
== END 2024-01-08 07:43 | disposition home or self-care (01) ==
LOC: HO.LAB 07:42
PROVIDERS: PCP Internal Medicine; Visit Provider Advanced Practice Midwife
DX: Z20.2 Contact with and (suspected) exposure to infections with a predominantly sexual mode of transmission (principal); Z01.419 Encounter for gynecological examination (general) (routine) without abnormal findings
CPT/HCPCS: 0352U; 36415; 81025; 87624; 88175; 99395

== ENCOUNTER 2024-01-08 08:18 | Outpatient (REF) | payer OTHER, SELFPAY ==
[2024-01-08 11:47] LABS: HBc Num1 0.13 S/CO (0.00-0.79); HIV AB/AG Nonreactive (Nonreactive); HIV Num 1 0.06 S/CO (0.00-0.99); Hepatitis B Core Antibody Nonreactive (Nonreactive); Syphilis Screen Nonreactive (Nonreactive); ~HepC Num1 0.08 S/CO (0.00-0.79); ~Hepatitis C Antibody Nonreactive (Nonreactive)
[2024-01-09 03:15] LABS: CT PCR NOT DETECTED (Not Detect.); NG PCR NOT DETECTED (Not Detect.)
== END 2024-01-08 08:19 | disposition home or self-care (01) ==
LOC: HO.LNP 08:18
PROVIDERS: Visit Provider Advanced Practice Midwife
DX: Z20.2 Contact with and (suspected) exposure to infections with a predominantly sexual mode of transmission (principal)
CPT/HCPCS: 86704; 86780; 86803; 87389; 87491; 87591

== ENCOUNTER 2024-01-08 08:30 | Outpatient (REF) | payer OTHER, SELFPAY | END 2024-01-08 08:31 | disposition home or self-care (01) | LOC: HO.LAB 08:30 | PROVIDERS: PCP Internal Medicine; Visit Provider Advanced Practice Midwife | DX: Z13.89 Encounter for screening for other disorder (principal) ==

== ENCOUNTER 2024-02-22 09:16 | Outpatient (REF) | payer OTHER, SELFPAY ==
--- NOTE | ~2024-02-22 | XR_ITS ---
EXAMINATION: XR THORACIC SPINE CLINICAL INFORMATION: M54.6 - Pain in thoracic spine COMPARISON: CT scan of the abdomen and pelvis 02/08/2016 TECHNIQUE: 3 views of the thoracic spine were obtained. FINDINGS: Vertebral bodies normally aligned. There is irregularity of the anterior aspect of the superior endplate of T12 unchanged. 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 This Vertebral body height otherwise unremarkable. Disc spaces normal. Surrounding bones soft tissues normal. XR/XR thoracic spine 2V IMPRESSION: 1. No acute abnormality. 2. 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 Electronically signed by: Phoenix Fitzpatrick MD 02/22/2024 02:27 PM [facility] [place]
[2024-02-22 13:45] LABS: Alanine Aminotransferase 41 U/L (0-31); Albumin Level 3.9 g/dL (3.5-5.0); Alkaline Phosphatase 70 U/L (39-117); Amylase 44 U/L (28-100); Anion Gap 11 (12-20); Aspartate Amino Transferase 35 U/L (5-31); Bilirubin Total 0.3 mg/dL (0.0-1.0); Blood Urea Nitrogen 18 mg/dL (9-16); Carbon Dioxide 26 mmol/L (22-29); Chloride 108 mmol/L (96-108); Estimated Glomerular Filt Rate > 60; Glucose Random 95 mg/dL (60-115); Lipase 35 U/L (8-78); Potassium 4.2 mmol/L (3.3-5.1); Sodium 141 mmol/L (135-145); Total Protein 7.3 g/dL (6.5-8.0)
== END 2024-02-22 09:17 | disposition home or self-care (01) ==
LOC: HO.HMGCX 09:16
PROVIDERS: PCP Internal Medicine; Visit Provider Internal Medicine
DX: M54.6 Pain in thoracic spine (principal); G89.29 Other chronic pain; E66.01 Morbid (severe) obesity due to excess calories; F41.1 Generalized anxiety disorder; M62.838 Other muscle spasm; J45.20 Mild intermittent asthma, uncomplicated; K59.01 Slow transit constipation; F32.0 Major depressive disorder, single episode, mild; Z91.09 Other allergy status, other than to drugs and biological substances; K58.9 Irritable bowel syndrome, unspecified; G43.909 Migraine, unspecified, not intractable, without status migrainosus; R10.9 Unspecified abdominal pain; J06.9 Acute upper respiratory infection, unspecified; E55.9 Vitamin D deficiency, unspecified
CPT/HCPCS: 36415; 72070; 80053; 82150; 83690; 99212

== ENCOUNTER 2024-02-22 09:16 | Outpatient (AMB) | payer OTHER, SELFPAY ==
[2024-02-22 09:19] VITALS: BP 122/76; PULSE 103; O2SAT 99; BMI 49.3
--- NOTE | 2024-02-22 09:19 | MHC.PC.OV ---
Vital Signs 02/22/24 09:19 Height 5 ft 2 in Weight 269 lb 8 oz BMI 49.3 BP 122/76 Blood Pressure Location Lt brachial Position Sitting Pulse 103 H Pulse Source Pulse Oximeter Pulse Oximetry (%) 99 Oxygen Delivery Method Room Air Intake Visit Reasons: 3M-Follow Up Allergies No Known Allergies Allergy (Verified 02/22/24 09:19) Medication List - Last Reconciled 02/22/24 by Huong Aceves MD albuterol sulfate 90 mcg/actuation (ProAir HFA) 1 inh inhalation QID PRN 30 days cetirizine (Zyrtec) 10 mg PO DAILY 90 days cholecalciferol (vitamin D3) 25 mcg PO DAILY 90 days cyclobenzaprine 10 mg PO Q12H PRN 30 days docusate sodium (Stool Softener) 500 mg (2 x 250 mg) PO BEDTIME 90 days [donut cushion As directed] lorazepam 0.5 mg PO DAILY PRN 30 days polyethylene glycol 3350 (Miralax) 17 grams PO DAILY 90 days topiramate (Topamax) 25 mg PO BID Tobacco use date assessed: 02/22/24 Dental Screening Dental Screen Date: 02/22/24 Did you have a dental visit in the last 12 months?: Yes Did you have a dental problem in the last 6 months where you did not have access to dental care?: No Was dental information given to patient?: Patient has dentist HPI 3M-Follow Up HPI Details Chief Complaint Three-month follow-up appointment medication refill Assessment and Plan 28-year-old female with a history of generalized anxiety disorder, asthma, IBS, and migraines presents with persistent left flank pain, exacerbated by movement, alongside cold-like symptoms recently treated with amoxicillin. The patient reports ongoing flank pain despite the normal findings on a prior renal ultrasound. Differential diagnoses include muscular pain radiating from a possible misalignment in the pelvis or spinal issues, though a pancreatic cause is also considered. The patient's respiratory infection is noted to be improving with antibiotic therapy. 1. Irritable Bowel Syndrome Continue current management with stool softeners at bedtime. Refills provided for medication. 2. Migraine Migraine management with Topamax is effective. Continue current therapy and monitor headaches. 3. Unspecified Abdominal Pain Persistent left flank pain with normal renal ultrasound and no family history of kidney disease. A applied behavior science specialist referral is considered, and pancreatic enzyme levels will be checked. Plan includes thoracic spine x-ray and labs for pancreatic enzymes. 4. Asthma The patient's asthma remains stable with intermittent use of an inhaler. Continue current management and monitor symptoms. 5. Generalized Anxiety Disorder The patient continues daily medication compliance for anxiety management. No desire to engage in therapy at this time. Lorazepam refill provided, patient is taking 1.5 mg tablet daily now 6. Upper Respiratory Tract Infection Recent upper respiratory symptoms improving with amoxicillin therapy. No COVID testing conducted. Continue medication course and manage symptoms as needed. 7. Vitamin D Deficiency Patient recently obtained vitamin D supplements. Continue supplementation and monitor levels periodically. Diagnostic results - Labs: Ordered tests to check pancreatic enzyme levels - Tests and Diagnostics: Thoracic spine x-ray planned; renal ultrasound in August was normal Problem List - Generalized Anxiety Disorder - Asthma - Unspecified Abdominal Pain - Migraine - Irritable Bowel Syndrome (IBS) - Upper Respiratory Tract Infection - Vitamin D Deficiency Health Maintenance - Continue vitamin D supplementation [place] of Care The patient is under no specific specialist care currently, but a referral to a applied behavior science specialist is placed Patient Instructions - Take prescribed medications as directed, including lorazepam, Topamax, and stool softeners. - Continue vitamin D supplementation. - Use the inhaler as needed for asthma symptoms. - Schedule and attend referral appointments with the applied behavior science specialist. - Monitor respiratory symptoms and seek further care if they worsen. - Follow up in 11 weeks for medication review and any additional concerns. 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 [employer] Sexual orientation: Straight/Heterosexual Gender identity: Female Cognitive needs: No Hearing needs: No Vision needs: No Questionnaire Thrive Questionnaire Date Thrive assessed: 11/06/23 I am a: Patient What is your living situation today?: I do not have a steady places to live I am temporarily staying with others Within the past 12 months, did the food you bought not last and you didn't have the money to get more?: Never true Within the past 12 months, did you worry whether your food would run out before you got money to buy more?: Never true Do you have trouble paying for medicines?: No Do you have trouble getting transportation to medical appointments?: No Do you have trouble paying your heating and electricity bill?: No Do you have trouble taking care of your child, family member or friend?: No Do you have trouble with day-to-day activities such as bathing, preparing meals, shopping, managing finances, etc.?: No Are you currently unemployed and looking for a job?: No Are you interested in more education?: No Please select the resources that you would like help with: None Currently or been in a relationship where the following occur: I choose not to answer THRIVE Score: 1 MARTHA-7 AMB Questionnaire MARTHA-7 Date MARTHA - 7 assessed: 03/21/23 Source: Developed by Drs. Robert Galaviz, Jenna Gamino, Chase Fonseca and colleagues, with an educational heather from [employer] Review of Systems Const Denies chills and Denies fever(s) ENT Denies epistaxis and Denies nasal discharge Card Denies chest pain Resp Denies chest congestion, Denies cough and Denies hemoptysis GI Denies diarrhea and Denies nausea Skin/Breast Denies rash Neuro Reports no additional complaints Psych Reports no additional complaints Endo Reports no additional complaints Physical exam (Primary Care) Vital Signs: Last Vital Signs Pulse 103 H 02/22/24 09:19 BP 122/76 02/22/24 09:19 Pulse Ox 99 02/22/24 09:19 Oxygen Delivery Method Room Air 02/22/24 09:19 BMI result Body Mass Index 49.3 Tobacco/Smoking Status: Tobacco use Status Tobacco use date assessed 02/22/24 02/22/24 09:21 Patient Tobacco Use Status Never used Tobacco 02/22/24 09:21 e-Cigarette/Vaping Use Never Used 02/22/24 09:21 Thrive Assessment: Date of Thrive Assessment Date Thrive assessed 11/06/23 02/22/24 09:21 Currently or been in a relationship where the following occur: I choose not to answer Const General: cooperative, comfortable and no acute distress Orientation/consciousness: patient oriented x3 HENMT Head: Yes normocephalic Eyes General: appearance normal, both eyes and all related structures Neck Neck: Yes supple Resp Effort & Inspection: normal respiratory effort, no cough and no stridor Cardio Rhythm: regular rhythm Heart sounds: S1 normal heart sound present and S2 normal heart sound present Back/Spine/Pelvis Back/spine/pelvis image: 1. Site of pain, no pain with percussion Skin General skin exam: turgor normal Neuro General: patient oriented x3, tone normal and moves all extremities Extrem Right lower extremity: no edema Left lower extremity: no edema Coding Level of Care Code Est Pt Level 4 (29797) Complex EM visit Add On G2211 Diagnoses Chronic right-sided thoracic back pain M54.6; G89.29 Chronicity: chronic Back pain laterality: right Morbid obesity due to excess calories E66.01 Environmental allergies Z91.09 Anxiety, generalized F41.1 Muscle spasm M62.838 Mild intermittent asthma without complication J45.20 Asthma complication type: uncomplicated Asthma severity: mild Constipation by delayed colonic transit K59.01 Current mild episode of major depressive disorder without prior episode F32.0 Active/Remission status: currently active Major depression episode severity: mild Major depression recurrence: single episode Assessment & Plan Assessment & Plan (1) Thoracic back pain: Code(s): M54.6 - Pain in thoracic spine Category: Medical Qualifiers: Chronicity: chronic Back pain laterality: right Qualified Code(s): M54.6 - Pain in thoracic spine; G89.29 - Other chronic pain (2) Morbid obesity due to excess calories: Code(s): E66.01 - Morbid (severe) obesity due to excess calories Category: Medical (3) Environmental allergies: Code(s): Z91.09 - Other allergy status, other than to drugs and biological substances Category: Medical (4) Anxiety, generalized: Code(s): F41.1 - Generalized anxiety disorder Category: Medical (5) Muscle spasm: Code(s): M62.838 - Other muscle spasm Category: Medical (6) Intermittent asthma: Code(s): J45.20 - Mild intermittent asthma, uncomplicated Category: Medical Qualifiers: Asthma complication type: uncomplicated Asthma severity: mild Qualified Code(s): J45.20 - Mild intermittent asthma, uncomplicated (7) Constipation by delayed colonic transit: Code(s): K59.01 - Slow transit constipation Category: Medical (8) Major depressive disorder: Code(s): F32.9 - Major depressive disorder, single episode, unspecified Category: Medical Qualifiers: Active/Remission status: currently active Major depression episode severity: mild Major depression recurrence: single episode Qualified Code(s): F32.0 - Major depressive disorder, single episode, mild Plan Chief Complaint Three-month follow-up appointment medication refill Assessment and Plan 28-year-old female with a history of generalized anxiety disorder, asthma, IBS, and migraines presents with persistent left flank pain, exacerbated by movement, alongside cold-like symptoms recently treated with amoxicillin. The patient reports ongoing flank pain despite the normal findings on a prior renal ultrasound. Differential diagnoses include muscular pain radiating from a possible misalignment in the pelvis or spinal issues, though a pancreatic cause is also considered. The patient's respiratory infection is noted to be improving with antibiotic therapy. 1. Irritable Bowel Syndrome Continue current management with stool softeners at bedtime. Refills provided for medication. 2. Migraine Migraine management with Topamax is effective. Continue current therapy and monitor headaches. 3. Unspecified Abdominal Pain Persistent left flank pain with normal renal ultrasound and no family history of kidney disease. A applied behavior science specialist referral is considered, and pancreatic enzyme levels will be checked. Plan includes thoracic spine x-ray and labs for pancreatic enzymes. 4. Asthma The patient's asthma remains stable with intermittent use of an inhaler. Continue current management and monitor symptoms. 5. Generalized Anxiety Disorder The patient continues daily medication compliance for anxiety management. No desire to engage in therapy at this time. Lorazepam refill provided, patient is taking 1.5 mg tablet daily now 6. Upper Respiratory Tract Infection Recent upper respiratory symptoms improving with amoxicillin therapy. No COVID testing conducted. Continue medication course and manage symptoms as needed. 7. Vitamin D Deficiency Patient recently obtained vitamin D supplements. Continue supplementation and monitor levels periodically. Diagnostic results - Labs: Ordered tests to check pancreatic enzyme levels - Tests and Diagnostics: Thoracic spine x-ray planned; renal ultrasound in August was normal Problem List - Generalized Anxiety Disorder - Asthma - Unspecified Abdominal Pain - Migraine - Irritable Bowel Syndrome (IBS) - Upper Respiratory Tract Infection - Vitamin D Deficiency Health Maintenance - Continue vitamin D supplementation [place] [facility] The patient is under no specific specialist care currently, but a referral to a applied behavior science specialist is placed Patient Instructions - Take prescribed medications as directed, including lorazepam, Topamax, and stool softeners. - Continue vitamin D supplementation. - Use the inhaler as needed for asthma symptoms. - Schedule and attend referral appointments with the applied behavior science specialist. - Monitor respiratory symptoms and seek further care if they worsen. - Follow up in 11 weeks for medication review and any additional concerns. Orders: Orders XR thoracic spine 2V Today M54.6 - Pain in thoracic spine Lipase Today E66.01 - Morbid (severe) obesity due to excess calories, F32.0 - Major depressive disorder, single episode, mild, F41.1 - Generalized anxiety disorder, J45.20 - Mild intermittent asthma, uncomplicated, K59.01 - Slow transit constipation, M54.6 - Pain in thoracic spine, M62.838 - Other muscle spasm, Z91.09 - Other allergy status, other than to drugs and biological substances Comprehensive Met. Panel Today E66.01 - Morbid (severe) obesity due to excess calories, F32.0 - Major depressive disorder, single episode, mild, F41.1 - Generalized anxiety disorder, J45.20 - Mild intermittent asthma, uncomplicated, K59.01 - Slow transit constipation, M54.6 - Pain in thoracic spine, M62.838 - Other muscle spasm, Z91.09 - Other allergy status, other than to drugs and biological substances Amylase Today E66.01 - Morbid (severe) obesity due to excess calories, F32.0 - Major depressive disorder, single episode, mild, F41.1 - Generalized anxiety disorder, J45.20 - Mild intermittent asthma, uncomplicated, K59.01 - Slow transit constipation, M54.6 - Pain in thoracic spine, M62.838 - Other muscle spasm, Z91.09 - Other allergy status, other than to drugs and biological substances Referrals Orthopedics Referral M54.6 - Pain in thoracic spine Medications: Changed From lorazepam 0.5 mg PO DAILY 30 days PRN 30 tabs 0RF anxiety To lorazepam 0.5 mg PO DAILY 90 days PRN 90 tabs 0RF anxiety Refilled topiramate (Topamax) Take 1 tablet daily for a week and then 2 times a day 12 hours apart 25 mg PO BID 60 tabs 2RF docusate sodium (Stool Softener) 500 mg (2 x 250 mg) PO BEDTIME 90 days 180 caps 1RF
== END 2024-02-22 09:38 | disposition home or self-care (01) ==
PROVIDERS: PCP Internal Medicine; Visit Provider Internal Medicine
DX: M54.6 Pain in thoracic spine (principal); E66.01 Morbid (severe) obesity due to excess calories; F32.0 Major depressive disorder, single episode, mild; Z68.42 Body mass index [BMI] 45.0-49.9, adult; G89.29 Other chronic pain; Z91.09 Other allergy status, other than to drugs and biological substances; F41.1 Generalized anxiety disorder; M62.838 Other muscle spasm; J45.20 Mild intermittent asthma, uncomplicated; K59.01 Slow transit constipation

== ENCOUNTER 2024-05-07 12:17 | Outpatient (AMB) | payer OTHER, SELFPAY ==
[2024-05-07 12:28] VITALS: BP 118/76; PULSE 86; TEMP 36.7; O2SAT 100; BMI 50.4
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
== END 2024-05-07 13:02 | disposition home or self-care (01) ==
PROVIDERS: PCP Internal Medicine; Visit Provider Internal Medicine
DX: Z00.01 Encounter for general adult medical examination with abnormal findings (principal); F32.0 Major depressive disorder, single episode, mild; E66.01 Morbid (severe) obesity due to excess calories; Z68.43 Body mass index [BMI] 50.0-59.9, adult; K58.2 Mixed irritable bowel syndrome; F41.1 Generalized anxiety disorder; Z91.09 Other allergy status, other than to drugs and biological substances; M62.838 Other muscle spasm; J45.20 Mild intermittent asthma, uncomplicated

== ENCOUNTER → 2024-05-07 12:17 | Outpatient (BNVA) | payer OTHER, SELFPAY | PROVIDERS: PCP Internal Medicine; Visit Provider Internal Medicine | DX: Z00.01 Encounter for general adult medical examination with abnormal findings (principal); F41.1 Generalized anxiety disorder; F32.0 Major depressive disorder, single episode, mild; K58.2 Mixed irritable bowel syndrome; E66.01 Morbid (severe) obesity due to excess calories; Z91.09 Other allergy status, other than to drugs and biological substances; M62.838 Other muscle spasm; J45.20 Mild intermittent asthma, uncomplicated | CPT/HCPCS: 96127; 99212; 99395 ==

== ENCOUNTER 2024-05-23 10:19 | Outpatient (AMB) | payer OTHER, SELFPAY ==
--- NOTE | 2024-05-23 10:29 | AM.OFFWIN_ITS ---
Intake Vital Signs 3 05/23/24 10:32 Weight 273 lb BP 130/86 Blood Pressure Location Rt brachial Position Sitting Pulse 76 Pulse Source Pulse Oximeter Pulse Oximetry (%) 100 Oxygen Delivery Method Room Air Intake Visit Reasons: EP Belly Button Piercing ripped out Intake Note: Patient here for belly button piercing ripped out Patient Tobacco Use Status: Never used Tobacco Allergies No Known Allergies Allergy (Verified 05/23/24 10:33) Medication List - Last Reconciled 05/23/24 by Huong Aceves MD albuterol sulfate 90 mcg/actuation (ProAir HFA) 1 inh inhalation QID PRN 30 days cetirizine (Zyrtec) 10 mg PO DAILY 90 days cholecalciferol (vitamin D3) 25 mcg PO DAILY 90 days cyclobenzaprine 10 mg PO Q12H PRN 30 days docusate sodium (Stool Softener) 500 mg (2 x 250 mg) PO BEDTIME 90 days [donut cushion As directed] lorazepam 0.5 mg PO BID PRN 90 days polyethylene glycol 3350 (Miralax) 17 grams PO DAILY 90 days topiramate 50 mg PO BID 90 days Do you need a note to return to daycare/school/sports/work: No HPI EP Belly Button Piercing ripped out 2 HPI0 Details - The patient is a 29-year-old female pr esenting with navel detachment. - Navel ring was intact in the morning, noticed missing after gym activities later in the day. - No accompanying pain or sensation at t he time of detachment. - Concerns revolve around esthetics and possible irritation. - Initial irritation was mentioned, cont ributing to the detachment. - Instructions were provided on maintain ing cleanliness and monitoring for signs of infection or discharge. Problem List - Navel detachment Patient Instructions - Keep the navel area dry. - Avoid touching the affected area. - Observe for any redness, discharge, or signs of infection. - Antibiotics will be sent to the [email or web address], use as prescribed if infection signs develop. Review of Systems - General: No fever no chills - Neurological: No headaches no dizziness - Ear nose throat: No sore throat no hearing difficulty no ear pain - Cardiovascular: No syncope, no chest pain, no palpitations - Gastrointestinal: No nausea vomiting or diarrhea - Endocrine: No polyuria polydipsia no heat intolerance - Genitourinary: No dysuria , no blood in urine PFSH Medical History LGSIL on Pap smear of cervix Morbid obesity Surgical History Hx of section Family History Sister Acute Crohn's disease Sister Diabetes Social History Housing: House Alcohol intake: current Alcohol intake frequency: holidays/special occasions only Patient Tobacco Use Status: Never used Tobacco e-Cigarette/Vaping Use: Never Used service: No Current occupational status: employed 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 mild redness and chronic skin thickening noticed with cut in the middle where the skin was detached and ring fell off Neuro General: patient oriented x3 Psych Mental Status: mental status grossly normal Assessment & Plan Assessment & Plan (1) Avulsion, skin: Code(s): T14.8XXA - Other injury of unspecified body region, initial encounter (2) Injury of skin and subcutaneous tissue: Code(s): T14.90XA - Injury, unspecified, initial encounter Plan - The patient is a 29-year-old female presenting with navel detachment. - Navel ring was intact in the morning, noticed missing after gym activities later in the day. - No accompanying pain or sensation at the time of detachment. - Concerns revolve around esthetics and possible irritation. - Initial irritation was mentioned, contributing to the detachment. - Instructions were provided on maintaining cleanliness and monitoring for signs of infection or discharge. Problem List - Navel detachment Patient Instructions - Keep the navel area dry. - Avoid touching the affected area. - Observe for any redness, discharge, or signs of infection. - Antibiotics will be sent to the pharmacy, use as prescribed if infection signs develop. Medications: New 2 amoxicillin-pot clavulanate 875-125 mg 1 tab PO BID 5 days 10 tabs 0RF Coding Level of Care Code Est Pt Level 3 (39871) Diagnoses Avulsion, skin T14.8XXA Injury of skin and subcutaneous tissue T14.90XA
[2024-05-23 10:32] VITALS: BP 130/86; PULSE 76; O2SAT 100
== END 2024-05-23 11:43 | disposition home or self-care (01) ==
PROVIDERS: PCP Internal Medicine; Visit Provider Internal Medicine
DX: T14.8XXA Other injury of unspecified body region, initial encounter (principal); T14.90XA Injury, unspecified, initial encounter

== ENCOUNTER → 2024-05-23 10:19 | Outpatient (BNVA) | payer OTHER, SELFPAY | PROVIDERS: PCP Internal Medicine; Visit Provider Internal Medicine | DX: T14.8XXA Other injury of unspecified body region, initial encounter (principal); T14.90XA Injury, unspecified, initial encounter | CPT/HCPCS: 99212 ==

== ENCOUNTER 2024-06-11 08:04 | Outpatient (AMB) | payer OTHER, SELFPAY ==
[2024-06-11 08:05] VITALS: BP 120/84; BMI 49.9
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
== END 2024-06-11 08:31 | disposition home or self-care (01) ==
LOC: HO.HWS 08:04
PROVIDERS: PCP Internal Medicine; Visit Provider Advanced Practice Midwife
DX: Z20.2 Contact with and (suspected) exposure to infections with a predominantly sexual mode of transmission (principal)
CPT/HCPCS: 99213

== ENCOUNTER 2024-06-11 08:04 | Outpatient (REF) | payer OTHER, SELFPAY | END 2024-06-11 08:05 | disposition home or self-care (01) | LOC: HO.LAB 08:04 | PROVIDERS: PCP Internal Medicine; Visit Provider Advanced Practice Midwife | DX: Z20.2 Contact with and (suspected) exposure to infections with a predominantly sexual mode of transmission (principal) | CPT/HCPCS: 99212 ==

== ENCOUNTER 2024-06-11 08:28 | Outpatient (REF) | payer OTHER, SELFPAY ==
[2024-06-11 10:18] LABS: HBc Num1 0.07 S/CO (0.00-0.79); HIV AB/AG Nonreactive (Nonreactive); HIV Num 1 0.06 S/CO (0.00-0.99); Hepatitis B Core Antibody Nonreactive (Nonreactive); Syphilis Screen Nonreactive (Nonreactive); ~HepC Num1 0.08 S/CO (0.00-0.79); ~Hepatitis C Antibody Nonreactive (Nonreactive)
[2024-06-11 16:04] LABS: Bacterial Vaginosis PCR POSITIVE (Negative); Candida Group PCR NOT DETECTED (Not Detect); Candida glab krusei PCR NOT DETECTED (Not Detect); Trichomonas vaginalis PCR NOT DETECTED (Not Detect)
[2024-06-11 16:33] LABS: CT PCR NOT DETECTED (Not Detect.); NG PCR NOT DETECTED (Not Detect.)
== END 2024-06-11 08:29 | disposition home or self-care (01) ==
LOC: HO.LNP 08:28
PROVIDERS: Visit Provider Advanced Practice Midwife
DX: Z20.2 Contact with and (suspected) exposure to infections with a predominantly sexual mode of transmission (principal)
CPT/HCPCS: 81515; 86704; 86780; 86803; 87389; 87491; 87591

== ENCOUNTER 2024-07-23 06:27 | Outpatient (REF) | payer OTHER, SELFPAY ==
[2024-07-23 06:57] LABS: MANUAL DIFF FLAG NO
[2024-07-23 07:28] LABS: Basophils Percent Auto 0.6 % (0-2); Eosinophils Absolute Auto 0.1 X10*3/uL (0.0-0.4); Eosinophils Percent Auto 1.8 % (0-4); Hematocrit 38.7 % (37.0-47.0); Hemoglobin 13.4 g/dl (12.0-16.0); Imm Gran Abs Auto 0.05 X10*3/uL (0.00-0.03); Imm Gran Pct Auto 0.8 % (0.0-0.4); Lymphocytes Absolute Auto 1.6 X10*3/uL (1.2-4.9); Lymphocytes Percent Auto 24.6 % (20-40); Mean Corpuscular HGB Conc 34.6 g/dl (31.0-35.0); Mean Corpuscular Hemoglobin 30.4 pg (27.0-33.0); Mean Corpuscular Volume 87.8 fL (80.0-98.0); Mean Platelet Volume 9.9 fL (9.4-12.3); Monocytes Absolute Auto 0.3 X10*3/uL (0.1-1.2); Monocytes Percent Auto 4.4 % (2-11); Neutrophils Absolute Auto 4.5 x10*3/uL (2.0-8.3); Neutrophils Percent Auto 67.8 % (45-73); Platelet Count 237 X10*3/uL (160-400); Red Blood Count 4.41 X10*6/uL (4.20-5.50); Red Cell Distribution Width 12.9 % (11.0-16.0); White Blood Count 6.6 X10*3/uL (4.8-10.8)
[2024-07-23 07:58] LABS: Alanine Aminotransferase 21 U/L (0-31); Albumin Level 3.9 g/dL (3.5-5.0); Alkaline Phosphatase 66 U/L (39-117); Anion Gap 12 (12-20); Aspartate Amino Transferase 18 U/L (5-31); Bilirubin Total 0.5 mg/dL (0.0-1.0); Blood Urea Nitrogen 18 mg/dL (9-16); Calcium 8.8 mg/dL (8.4-10.2); Carbon Dioxide 21 mmol/L (22-29); Chloride 110 mmol/L (96-108); Cholesterol 168 mg/dL (<200); Estimated Glomerular Filt Rate > 60; Glucose Fasting 95 mg/dL (60-99); HDL Cholesterol 44 mg/dL (>40); LDL Cholesterol Calculated 107 mg/dL (<100); Potassium 3.6 mmol/L (3.3-5.1); Sodium 139 mmol/L (135-145); Triglycerides 89 mg/dL (<150)
[2024-07-23 08:18] LABS: TSH reflex Free T4 1.97 uIU/mL (0.32-4.0)
[2024-07-23 08:33] LABS: Syphilis Screen Nonreactive (Nonreactive)
[2024-07-23 09:08] LABS: HBc Num1 0.07 S/CO (0.00-0.79); HIV AB/AG Nonreactive (Nonreactive); HIV Num 1 0.08 S/CO (0.00-0.99); Hepatitis B Core Antibody Nonreactive (Nonreactive); ~HepC Num1 0.06 S/CO (0.00-0.79); ~Hepatitis C Antibody Nonreactive (Nonreactive)
[2024-07-28 01:29] LABS: Vitamin D 25-OH, D2 <4 ng/mL; Vitamin D 25-OH, D3 27 ng/mL; Vitamin D 25-OH, Total 27 ng/mL (30-100)
== END 2024-07-23 06:28 | disposition home or self-care (01) ==
LOC: HO.LAB 06:27
PROVIDERS: Absent Provider Advanced Practice Midwife; PCP Internal Medicine; Visit Provider Internal Medicine
DX: Z00.01 Encounter for general adult medical examination with abnormal findings (principal); E66.01 Morbid (severe) obesity due to excess calories; K58.2 Mixed irritable bowel syndrome; Z91.09 Other allergy status, other than to drugs and biological substances; F41.1 Generalized anxiety disorder; J45.20 Mild intermittent asthma, uncomplicated; F32.0 Major depressive disorder, single episode, mild; Z20.2 Contact with and (suspected) exposure to infections with a predominantly sexual mode of transmission; M62.838 Other muscle spasm
CPT/HCPCS: 36415; 80053; 80061; 82306; 84443; 85025; 86704; 86780; 86803; 87389

== ENCOUNTER 2024-08-01 11:58 | Outpatient (AMB) | payer OTHER, SELFPAY ==
[2024-08-01 12:07] VITALS: BP 106/74; PULSE 63; RESP 16; TEMP 36.7; O2SAT 100; BMI 51.0
--- NOTE | 2024-08-01 12:07 | MHC.PC.OV ---
Vital Signs 08/01/24 12:07 Height 5 ft 2 in Weight 279 lb BMI 51.0 BP 106/74 Blood Pressure Location Rt brachial Position Sitting Respiration 16 Pulse 63 Pulse Source Pulse Oximeter Temp 98.1 F Temp Source Oral Pulse Oximetry (%) 100 Oxygen Delivery Method Room Air Intake Visit Reasons: 3m follow up Allergies No Known Allergies Allergy (Verified 08/01/24 12:10) Medication List - Last Reconciled 08/01/24 by Huong Aceves MD albuterol sulfate 90 mcg/actuation (ProAir HFA) 1 inh inhalation QID PRN 30 days cetirizine (Zyrtec) 10 mg PO DAILY 90 days cholecalciferol (vitamin D3) 25 mcg PO DAILY 90 days cyclobenzaprine 10 mg PO Q12H PRN 30 days docusate sodium (Stool Softener) 500 mg (2 x 250 mg) PO BEDTIME 90 days lorazepam 0.5 mg PO BID PRN 8 days topiramate 50 mg PO BID 90 days Tobacco use date assessed: 08/01/24 Dental Screening Dental Screen Date: 08/01/24 Did you have a dental visit in the last 12 months?: Yes Did you have a dental problem in the last 6 months where you did not have access to dental care?: Yes Was dental information given to patient?: Patient has dentist HPI 3m follow up HPI Details History - The patient is a 29-year-old female presenting for regular follow-up appointment, medication refill and has been having pain due to impacted wisdom tooth. - She reports significant pain from an impacted wisdom tooth and is seeking consultation with an oral surgeon to have it extracted. She has previously had other wisdom teeth removed by the same dental office but they no longer perform extractions. She received amoxicillin for any potential infection but continues to have pain, which disrupts her sleep. - She admits to using muscle relaxants at night for sleep due to the discomfort from her dental issue. Additionally, she has been unable to obtain Ibuprofen 800mg from her current dentist for her pain. - She reports experiencing mood instability and anxiety, for which she takes Lorazepam 1mg per day, occasionally increasing to two tablets if needed. Her use increased recently due to travel but she did not require extra doses. Patient was advised to not exceed more than 1 a day - She is taking Topiramate 50mg twice daily as a mood stabilizer and reports stability with the current dosage. She continues with Zyrtec for allergies, Vitamin D supplements, and uses muscle relaxers occasionally for sleep disturbances. - The patient recently attended urgent care for symptoms of a urinary tract infection with frequent urination and discomfort. She was prescribed an antibiotic and is on her second day of treatment, experiencing some improvement in symptoms. - Socially, she works two jobs and manages care for her child despite interpersonal issues with her child's father. Her schedule is tightly packed with appointments, further stressing her current situation. Problem List - Urinary Tract Infection (UTI) - Pain Due to Impacted [place] Tooth - Mood Instability - Anxiety Disorder - Use of Muscle Relaxers for Sleep Disturbances and back spasms Patient Instructions - Continue taking prescribed antibiotic as directed for urinary tract infection. - Use muscle relaxers sparingly. - lorazepam refill sent 90 tablets for 90 days - Maintain current dosage of Topiramate unless directed otherwise. - Arrange for oral surgical consultation for the impacted wisdom tooth. - Continue using ibuprofen as needed for pain relief. Review of Systems - General: No fever no chills - Neurological: No headaches no dizziness - Ear nose throat: No sore throat no hearing difficulty no ear pain - Cardiovascular: No syncope, no chest pain, no palpitations - Gastrointestinal: No nausea vomiting or diarrhea - Endocrine: No polyuria polydipsia no heat intolerance - Genitourinary: No dysuria , no blood in urine Physical Exam - General: No acute distress - HEENT: No acute findings - Neck: Supple - Respiratory system: Able to talk in full sentences, no audible wheeze - Cardiovascular: S1-S2 regular in rate and rhythm - Gastrointestinal: No pain - Extremities: No new findings - E[employer]MENT[employer] B[employer] DIRECTOR: Alert awake oriented x3 motor sensory intact - Skin: Normal turgor PFSH Medical History LGSIL on Pap smear of cervix Morbid obesity Surgical History Hx of section Family History Sister Acute Crohn's disease Sister Diabetes Social History Housing: House Alcohol intake: current Alcohol intake frequency: holidays/special occasions only Patient Tobacco Use Status: Never used Tobacco e-Cigarette/Vaping Use: Never Used service: No Current occupational status: employed 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 [employer] Sexual orientation: Straight/Heterosexual Gender identity: Female Cognitive needs: No Hearing needs: No Vision needs: No Questionnaire Thrive Questionnaire Date Thrive assessed: 04/30/24 I am a: Patient What is your living situation today?: I have a steady place to live Within the past 12 months, did the food you bought not last and you didn't have the money to get more?: Never true Within the past 12 months, did you worry whether your food would run out before you got money to buy more?: Never true Do you have trouble paying for medicines?: No Do you have trouble getting transportation to medical appointments?: No Do you have trouble paying your heating and electricity bill?: No Do you have trouble taking care of your child, family member or friend?: No Do you have trouble with day-to-day activities such as bathing, preparing meals, shopping, managing finances, etc.?: No Are you currently unemployed and looking for a job?: Yes Are you interested in more education?: No Please select the resources that you would like help with: Job search/training Currently or been in a relationship where the following occur: I choose not to answer THRIVE Score: 0 MARTHA-7 AMB Questionnaire MARTHA-7 Date MARTHA - 7 assessed: 05/07/24 Source: Developed by Drs. Robert Galaviz, Jenna Gamino, Chase Fonseca and colleagues, with an educational heather from [employer]. Physical exam (Primary Care) Vital Signs: Last Vital Signs Temp 98.1 F 08/01/24 12:07 Pulse 63 08/01/24 12:07 Resp 16 08/01/24 12:07 BP 106/74 08/01/24 12:07 Pulse Ox 100 08/01/24 12:07 Oxygen Delivery Method Room Air 08/01/24 12:07 BMI result Body Mass Index 51.0 Tobacco/Smoking Status: Tobacco use Status Tobacco use date assessed 08/01/24 08/01/24 12:14 Patient Tobacco Use Status Never used Tobacco 08/01/24 12:09 e-Cigarette/Vaping Use Never Used 08/01/24 12:09 Thrive Assessment: Date of Thrive Assessment Date Thrive assessed 04/30/24 08/01/24 12:09 Currently or been in a relationship where the following occur: I choose not to answer Coding Level of Care Code Est Pt Level 4 (25120) Complex EM visit Add On G2211 Diagnoses Anxiety, generalized F41.1 Tooth ache K08.89 Current mild episode of major depressive disorder without prior episode F32.0 Major depression recurrence: single episode Active/Remission status: currently active Major depression episode severity: mild Irritable bowel syndrome with both constipation and diarrhea K58.2 Irritable bowel syndrome type: with both diarrhea and constipation Morbid obesity due to excess calories E66.01 Environmental allergies Z91.09 Muscle spasm M62.838 Mild intermittent asthma without complication J45.20 Asthma severity: mild Asthma complication type: uncomplicated Assessment & Plan Assessment & Plan (1) Anxiety, generalized: Code(s): F41.1 - Generalized anxiety disorder Category: Medical (2) Tooth ache: Code(s): K08.89 - Other specified disorders of teeth and supporting structures Category: Medical (3) Major depressive disorder: Code(s): F32.9 - Major depressive disorder, single episode, unspecified Category: Medical Qualifiers: Major depression recurrence: single episode Active/Remission status: currently active Major depression episode severity: mild Qualified Code(s): F32.0 - Major depressive disorder, single episode, mild (4) IBS (irritable bowel syndrome): Code(s): K58.9 - Irritable bowel syndrome, unspecified Category: Medical Qualifiers: Irritable bowel syndrome type: with both diarrhea and constipation Qualified Code(s): K58.2 - Mixed irritable bowel syndrome (5) Morbid obesity due to excess calories: Code(s): E66.01 - Morbid (severe) obesity due to excess calories Category: Medical (6) Environmental allergies: Code(s): Z91.09 - Other allergy status, other than to drugs and biological substances Category: Medical (7) Muscle spasm: Code(s): M62.838 - Other muscle spasm Category: Medical (8) Intermittent asthma: Code(s): J45.20 - Mild intermittent asthma, uncomplicated Category: Medical Qualifiers: Asthma severity: mild Asthma complication type: uncomplicated Qualified Code(s): J45.20 - Mild intermittent asthma, uncomplicated Plan History - The patient is a 29-year-old female presenting for regular follow-up appointment, medication refill and has been having pain due to impacted wisdom tooth. - She reports significant pain from an impacted wisdom tooth and is seeking consultation with an oral surgeon to have it extracted. She has previously had other wisdom teeth removed by the same dental office but they no longer perform extractions. She received amoxicillin for any potential infection but continues to have pain, which disrupts her sleep. - She admits to using muscle relaxants at night for sleep due to the discomfort from her dental issue. Additionally, she has been unable to obtain Ibuprofen 800mg from her current dentist for her pain. - She reports experiencing mood instability and anxiety, for which she takes Lorazepam 1mg per day, occasionally increasing to two tablets if needed. Her use increased recently due to travel but she did not require extra doses. Patient was advised to not exceed more than 1 a day - She is taking Topiramate 50mg twice daily as a mood stabilizer and reports stability with the current dosage. She continues with Zyrtec for allergies, Vitamin D supplements, and uses muscle relaxers occasionally for sleep disturbances. - The patient recently attended urgent care for symptoms of a urinary tract infection with frequent urination and discomfort. She was prescribed an antibiotic and is on her second day of treatment, experiencing some improvement in symptoms. - Socially, she works two jobs and manages care for her child despite interpersonal issues with her child's father. Her schedule is tightly packed with appointments, further stressing her current situation. Problem List - Urinary Tract Infection (UTI) - Pain Due to Impacted [place] Tooth - Mood Instability - Anxiety Disorder - Use of Muscle Relaxers for Sleep Disturbances and back spasms Patient Instructions - Continue taking prescribed antibiotic as directed for urinary tract infection. - Use muscle relaxers sparingly. - lorazepam refill sent 90 tablets for 90 days - Maintain current dosage of Topiramate unless directed otherwise. - Arrange for oral surgical consultation for the impacted wisdom tooth. - Continue using ibuprofen as needed for pain relief. Medications: New ibuprofen 800 mg PO .qhs 30 days PRN 30 tabs 0RF pain Changed From lorazepam further refills will require visit with your prescriber 0.5 mg PO BID 8 days PRN 16 tabs 0RF anxiety To lorazepam further refills will require visit with your prescriber 0.5 mg PO ONCE 90 days PRN 90 tabs 0RF anxiety From cyclobenzaprine 10 mg PO Q12H 30 days PRN 60 tabs 0RF muscle spasm To cyclobenzaprine 10 mg PO .qhs 90 days PRN 90 tabs 0RF muscle spasm
== END 2024-08-01 12:34 | disposition home or self-care (01) ==
LOC: HO.HMCC 11:59
PROVIDERS: PCP Internal Medicine; Visit Provider Internal Medicine
DX: K08.89 Other specified disorders of teeth and supporting structures (principal); E66.01 Morbid (severe) obesity due to excess calories; Z68.43 Body mass index [BMI] 50.0-59.9, adult; F41.1 Generalized anxiety disorder; F32.0 Major depressive disorder, single episode, mild; K58.2 Mixed irritable bowel syndrome; Z91.09 Other allergy status, other than to drugs and biological substances; M62.838 Other muscle spasm; J45.20 Mild intermittent asthma, uncomplicated

== ENCOUNTER → 2024-08-01 11:58 | Outpatient (BNVA) | payer OTHER, SELFPAY | PROVIDERS: PCP Internal Medicine; Visit Provider Internal Medicine | DX: K01.1 Impacted teeth (principal); N39.0 Urinary tract infection, site not specified; F41.1 Generalized anxiety disorder; F32.0 Major depressive disorder, single episode, mild; K58.2 Mixed irritable bowel syndrome; E66.01 Morbid (severe) obesity due to excess calories; Z68.43 Body mass index [BMI] 50.0-59.9, adult; M62.838 Other muscle spasm; J45.20 Mild intermittent asthma, uncomplicated; Z91.09 Other allergy status, other than to drugs and biological substances | CPT/HCPCS: 99212 ==

== ENCOUNTER 2024-10-22 14:40 | Outpatient (AMB) | payer OTHER, SELFPAY ==
[2024-10-22 14:41] VITALS: BP 108/72; PULSE 85; O2SAT 99; BMI 51.6
--- NOTE | 2024-10-22 14:41 | MHC.PC.OV ---
Vital Signs 10/22/24 14:41 Height 5 ft 2 in Weight 282 lb BMI 51.6 BP 108/72 Blood Pressure Location Lt brachial Position Sitting Pulse 85 Pulse Source Pulse Oximeter Pulse Oximetry (%) 99 Oxygen Delivery Method Room Air Intake Visit Reasons: 3m follow up Allergies No Known Allergies Allergy (Verified 10/22/24 14:42) Medication List - Last Reconciled 10/22/24 by Huong Aceves MD albuterol sulfate 90 mcg/actuation (ProAir HFA) 1 inh inhalation QID PRN 30 days cetirizine (Zyrtec) 10 mg PO DAILY 90 days cholecalciferol (vitamin D3) 25 mcg PO DAILY 90 days cyclobenzaprine 10 mg PO .qhs PRN 90 days docusate sodium (Stool Softener) 500 mg (2 x 250 mg) PO BEDTIME 90 days ibuprofen 800 mg PO .qhs PRN 30 days lorazepam 0.5 mg PO ONCE PRN 90 days topiramate 50 mg PO BID 90 days Tobacco use date assessed: 08/01/24 Dental Screening Dental Screen Date: 08/01/24 HPI 3m follow up HPI Details Chief Complaint The patient presents for medication refills and continuation of current therapies. History of Present Illness The patient is a 29 year old female presenting with medication refill requirements. Anxiety: - The patient has been experiencing generalized anxiety. - She is currently managing this condition with lorazepam, which she continues to take daily. Environmental Allergies: - Patient reports environmental allergies and is taking cetirizine for management. Vitamin D Deficiency: - The patient had a vitamin D level of 27 ng/mL in July, below the desired level of 50 ng/mL. - Continues vitamin D supplements but noted absence of latest refill, pending pick-up. Muscle Spasms: - Muscle spasms are reported to occur off and on. - Uses muscle relaxers for symptomatic relief. Intermittent Back Pain: - Patient occasionally experiences back pain, managed with ibuprofen as needed. Migraine Prevention: - Patient is on Topamax for migraine prevention; current supply is adequate. Asthma: - History of asthma stable with no recent exacerbations. Hemorrhoids: - Reports stable external hemorrhoids. Medical History: - Generalized anxiety - Environmental allergies - Vitamin D deficiency - Asthma (stable) - External hemorrhoids (stable) - Muscle spasms (off and on) Medications: - Lorazepam for anxiety management, taken daily - Cetirizine for environmental allergies - Vitamin D supplementation for deficiency - Ibuprofen as needed for back pain - Topamax for migraine prevention - Muscle relaxer for occasional muscle spasms Social History: - The patient is employed with two jobs. - Reports feeling tired frequently; body pain results from exhaustive work schedule. - Attempts to incorporate exercise into routine. Diagnostic Results: - Labs: - Vitamin D level checked in July: 27 ng/mL (below the desired level of 50 ng/mL) Problem List - Generalized Anxiety - Environmental Allergies - Vitamin D Deficiency - Muscle Spasms - Intermittent Back Pain - Migraine - Asthma - Hemorrhoids Patient Instructions - Continue current medications as prescribed. 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 - See a healthcare provider if symptoms worsen or new symptoms develop. - Follow-up appointment scheduled for three months. Review of Systems - General: No fever no chills - Neurological: No headaches no dizziness - Ear nose throat: No sore throat no hearing difficulty no ear pain - Cardiovascular: No syncope, no chest pain, no palpitations - Gastrointestinal: No nausea vomiting or diarrhea - Endocrine: No polyuria polydipsia no heat intolerance - Genitourinary: No dysuria , no blood in urine Physical Exam - General: No acute distress - HEENT: No acute findings - Neck: Supple - Respiratory system: Able to talk in full sentences, no audible wheeze - Cardiovascular: S1-S2 regular in rate and rhythm - Gastrointestinal: No pain - Extremities: No new findings - DEMURRAGE AGENT: Alert awake oriented x3 motor sensory intact - Skin: Normal turgor PFSH Medical History LGSIL on Pap smear of cervix Morbid obesity Surgical History Hx of section Family History Sister Acute Crohn's disease Sister Diabetes Social History Housing: House Alcohol intake: current Alcohol intake frequency: holidays/special occasions only Patient Tobacco Use Status: Never used Tobacco e-Cigarette/Vaping Use: Never Used service: No Current occupational status: employed 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 [employer] Sexual orientation: Straight/Heterosexual Gender identity: Female Cognitive needs: No Hearing needs: No Vision needs: No Questionnaire Thrive Questionnaire Date Thrive assessed: 04/30/24 I am a: Patient What is your living situation today?: I have a steady place to live Within the past 12 months, did the food you bought not last and you didn't have the money to get more?: Never true Within the past 12 months, did you worry whether your food would run out before you got money to buy more?: Never true Do you have trouble paying for medicines?: No Do you have trouble getting transportation to medical appointments?: No Do you have trouble paying your heating and electricity bill?: No Do you have trouble taking care of your child, family member or friend?: No Do you have trouble with day-to-day activities such as bathing, preparing meals, shopping, managing finances, etc.?: No Are you currently unemployed and looking for a job?: Yes Are you interested in more education?: No Please select the resources that you would like help with: Job search/training Currently or been in a relationship where the following occur: I choose not to answer THRIVE Score: 0 MARTHA-7 AMB Questionnaire MARTHA-7 Date MARTHA - 7 assessed: 05/07/24 Source: Developed by Drs. Robert Galaviz, Jenna Gamino, Chase Fonseca and colleagues, with an educational heather from [employer]. Physical exam (Primary Care) Vital Signs: Last Vital Signs Pulse 85 10/22/24 14:41 BP 108/72 10/22/24 14:41 Pulse Ox 99 10/22/24 14:41 Oxygen Delivery Method Room Air 10/22/24 14:41 BMI result Body Mass Index 51.6 Tobacco/Smoking Status: Tobacco use Status Tobacco use date assessed 08/01/24 10/22/24 14:46 Patient Tobacco Use Status Never used Tobacco 10/22/24 14:46 e-Cigarette/Vaping Use Never Used 10/22/24 14:46 Thrive Assessment: Date of Thrive Assessment Date Thrive assessed 04/30/24 10/22/24 14:46 Currently or been in a relationship where the following occur: I choose not to answer Coding Level of Care Code Est Pt Level 4 (69336) Complex EM visit Add On G2211 Diagnoses Anxiety, generalized F41.1 Current mild episode of major depressive disorder without prior episode F32.0 Major depression recurrence: single episode Active/Remission status: currently active Major depression episode severity: mild Irritable bowel syndrome with both constipation and diarrhea K58.2 Irritable bowel syndrome type: with both diarrhea and constipation Morbid obesity due to excess calories E66.01 Environmental allergies Z91.09 Muscle spasm M62.838 Mild intermittent asthma without complication J45.20 Asthma severity: mild Asthma complication type: uncomplicated Assessment & Plan Assessment & Plan (1) Anxiety, generalized: Code(s): F41.1 - Generalized anxiety disorder Category: Medical (2) Major depressive disorder: Code(s): F32.9 - Major depressive disorder, single episode, unspecified Category: Medical Qualifiers: Major depression recurrence: single episode Active/Remission status: currently active Major depression episode severity: mild Qualified Code(s): F32.0 - Major depressive disorder, single episode, mild (3) IBS (irritable bowel syndrome): Code(s): K58.9 - Irritable bowel syndrome, unspecified Category: Medical Qualifiers: Irritable bowel syndrome type: with both diarrhea and constipation Qualified Code(s): K58.2 - Mixed irritable bowel syndrome (4) Morbid obesity due to excess calories: Code(s): E66.01 - Morbid (severe) obesity due to excess calories Category: Medical (5) Environmental allergies: Code(s): Z91.09 - Other allergy status, other than to drugs and biological substances Category: Medical (6) Muscle spasm: Code(s): M62.838 - Other muscle spasm Category: Medical (7) Intermittent asthma: Code(s): J45.20 - Mild intermittent asthma, uncomplicated Category: Medical Qualifiers: Asthma severity: mild Asthma complication type: uncomplicated Qualified Code(s): J45.20 - Mild intermittent asthma, uncomplicated Plan Chief Complaint The patient presents for medication refills and continuation of current therapies. Ongoing care visit History of Present Illness The patient is a 29 year old female presenting with medication refill requirements. Anxiety: - The patient has been experiencing generalized anxiety. - She is currently managing this condition with lorazepam, which she continues to take daily. Environmental Allergies: - Patient reports environmental allergies and is taking cetirizine for management. Vitamin D Deficiency: - The patient had a vitamin D level of 27 ng/mL in July, below the desired level of 50 ng/mL. - Continues vitamin D supplements but noted absence of latest refill, pending pick-up. Muscle Spasms: - Muscle spasms are reported to occur off and on. - Uses muscle relaxers for symptomatic relief. Intermittent Back Pain: - Patient occasionally experiences back pain, managed with ibuprofen as needed. Migraine Prevention: - Patient is on Topamax for migraine prevention; current supply is adequate. Asthma: - History of asthma stable with no recent exacerbations. Hemorrhoids: - Reports stable external hemorrhoids. Medical History: - Generalized anxiety - Environmental allergies - Vitamin D deficiency - Asthma (stable) - External hemorrhoids (stable) - Muscle spasms (off and on) Medications: - Lorazepam for anxiety management, taken daily - Cetirizine for environmental allergies - Vitamin D supplementation for deficiency - Ibuprofen as needed for back pain - Topamax for migraine prevention - Muscle relaxer for occasional muscle spasms Social History: - The patient is employed with two jobs. - Reports feeling tired frequently; body pain results from exhaustive work schedule. - Attempts to incorporate exercise into routine. Diagnostic Results: - Labs: - Vitamin D level checked in July: 27 ng/mL (below the desired level of 50 ng/mL) Problem List - Generalized Anxiety - Environmental Allergies - Vitamin D Deficiency - Muscle Spasms - Intermittent Back Pain - Migraine - Asthma - Hemorrhoids Patient Instructions - Continue current medications as prescribed. 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 - See a healthcare provider if symptoms worsen or new symptoms develop. - Follow-up appointment scheduled for three months. Medications: Refilled cholecalciferol (vitamin D3) 25 mcg PO DAILY 90 caps 1RF 90 days lorazepam further refills will require visit with your prescriber 0.5 mg PO ONCE PRN 90 tabs 0RF anxiety 90 days
--- OUTSIDE RECORDS SUMMARY | 2024-10-22 14:48 | XMS_ITS | Clinical Summary ---
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 01/25/20 23 Active cetirizine (ZYRTEC) 10 MG tablet Take 1 tablet by mouth every morning. 02/03/20 23 Active cyclobenzaprine (FLEXERIL) 5 MG tablet TAKE ONE TABLET BY MOUTH ONCE NEEDED FOR MUSCLE SPASM 03/14/19 24 Active diclofenac sodium (VOLTAREN) 75 MG EC tablet 03/27/19 24 Active hydrocortisone 2.5 % cream 03/27/19 24 Active lidocaine-prilo eligio (EMLA) cream APPLY ONE APPLICATION TOPICALLY ONCE FOR 30 DAYS. 03/21/19 24 Active ibuprofen (ADVIL) 200 mg capsule Take 600 mg by mouth every 6 (six) hours as needed. 05/24/19 23 Active hydrocortisone acetate (ANUSOL-HC) [address] 25 mg rectally 2 (two) times a day. Active docusate sodium (COLACE) 50 MG capsule Take 50 mg by mouth daily. Active lidocaine (LIDAMANTLE) 3 % Crea Apply topically 3 (three) times a day as needed. Compound cream: Nifedipine 0.2%, Lidocaine 3%, Hydrocortisone 3%. Apply small amount to inside of anus three times daily 60 g 03/28/19 24 Active Immunizations Immunization Administration Dates Next Due COVID-19 (Pre-01/01) [employer] Vaccine, Bivalent 12+ 01/14/2022,01/14/2022 COVID-19 (Pre-01/01) Pfizer Vaccine, mRNA, PF 09/14/2021,08/24/2021 HPV9 07/23/2020,05/21/2020 Hepatitis B Adult 05/02/1994,1993,05/05/18 94 INFLUENZA, SPLIT VIRUS, TRIV ALENT W/ PRESERVATIVE IM 01/07/2020 Influenza Quadrivalent MDCK Preservative Free IM 12/11/2017 Influenza Quadrivalent Preservative Free IM 12/11,01/19/2022 Influenza Quadrivalent w/ Preservative IM 2015 MMR 04/10/2020,08/13/1998,07/28/1994 Tdap 01/07/2020,05/04/2008 Varicella 08/13/1998 Social History Tobacco Use Types Packs/Day Years Used Date Smoking Tobacco: Never Smokeless Tobacco: Never Education Answer Date Recorded Are you interested in more education? Not on leo e 07/07/2022 Are you concerned about learning? Not on file 07/07/2022 No 07/07/2022 No 07/07/2022 Digital Access Answer Date Recorded No 08/07/2022 No 08/07/2022 Reliable internet access at home? Not on file 08/07/2022 Device with a working camera? Not on file Comments Unknown Sex and Gender Information Value Date Recorded Sex Assigned at Female 10/05/2021 12:26 PM EDT Legal Sex Female 4:48 PM EDT Gender Identity Female 10/05/2021 12:26 PM EDT Sexual Orientation Straight 10/05/2021 12 :26 PM EDT Last Filed Vital Signs Vital Sign Reading Time Taken Comments Blood Pressure 124/68 03/28/2023 3:33 PM EST Pulse 86 03/28/2023 3:33 PM EST Temperature 36.6 C (97.8 F) 03/28/2023 3:33 PM EST Respiratory Rate - - Oxygen Saturation 99% 03/28/2023 3:33 PM EST Inhaled Oxygen Concentration - - Weight 132.3 kg (291 lb 9.6 oz) 03/28/2023 3:33 PM EST Height - - Body Mass Index - - Plan of Treatment Health Maintenance Due Date Last Done Comments DEPRESSION SCREENING 2005 HEPATITIS C SCREENING 2011 HIV ONE-TIME SCREENING (18-65 YEARS) 2011 PAP SMEAR 2014 COVID-19 VACCINE ( season) 2023 01/14/2022, 01/14/2022, 09/14/2021, Additional history exists Adult Td,Tdap Booster 01/06/2030 01/07/2020, 009 SMOKING STATUS SCREENING (Once After 26 Yrs) Completed 03/28/2023 HEPATITIS A VACCINES Aged Out No long er eligible based on patient's age to complete this topic HIB VACCINES Aged Out No longer eligi ble based on patient's age to complete this topic MENINGOCOCCAL VACCINES (ACWY) Aged Out No longer eligible based on patient's age to complete this topic MENINGOCOCCAL VACCINES (B) Aged Out N o longer eligible based on patient's age to complete this topic PNEUMOCOCCAL VACCINES (0-49 years) Aged Out No longer eligible based on patient's age to complete this topic Medical Devices Not on file Insurance [facility] [place] [address] [place] [address] [place] [address] [place] [address] [address] [place] [address] [address] [place] [address] [address] [place] [address] [address] [place] [address] [place] [address] [place] [address] ACO [facility] A[facility] Care Teams Warehouse General Laborer Relationship Specialty Start Date End Date Huong Aceves MD [address] [place] [address] PCP - General Internal Medicine 10/03/21 Additional Source Comments The information contained in this document represents components of the legal health record. It is not the complete legal health record.[facility]
== END 2024-10-22 15:05 | disposition home or self-care (01) ==
LOC: HO.HMCC 14:41
PROVIDERS: PCP Internal Medicine; Visit Provider Internal Medicine
DX: K58.2 Mixed irritable bowel syndrome (principal); F41.1 Generalized anxiety disorder; E66.01 Morbid (severe) obesity due to excess calories; Z68.43 Body mass index [BMI] 50.0-59.9, adult; F32.0 Major depressive disorder, single episode, mild; Z91.09 Other allergy status, other than to drugs and biological substances; M62.838 Other muscle spasm; J45.20 Mild intermittent asthma, uncomplicated

== ENCOUNTER → 2024-10-22 14:40 | Outpatient (BNVA) | payer OTHER, SELFPAY | PROVIDERS: PCP Internal Medicine; Visit Provider Internal Medicine | DX: F41.1 Generalized anxiety disorder (principal); E55.9 Vitamin D deficiency, unspecified; M62.838 Other muscle spasm; M54.9 Dorsalgia, unspecified; G43.909 Migraine, unspecified, not intractable, without status migrainosus; J45.909 Unspecified asthma, uncomplicated; K64.9 Unspecified hemorrhoids; F32.0 Major depressive disorder, single episode, mild; K58.2 Mixed irritable bowel syndrome; E66.01 Morbid (severe) obesity due to excess calories; J45.20 Mild intermittent asthma, uncomplicated; Z91.09 Other allergy status, other than to drugs and biological substances; Z68.43 Body mass index [BMI] 50.0-59.9, adult | CPT/HCPCS: 99212 ==

== ENCOUNTER 2025-01-14 07:53 | Outpatient (AMB) | payer OTHER, SELFPAY ==
--- OUTSIDE RECORDS SUMMARY | 2025-01-14 07:57 | XMS_ITS | Clinical Summary ---
Author Organization [facility] Address [address] [place] [phone] Phone Care Team Providers Care Performance Management Consultant Name Role Phone Huong Aceves MD Primary Care Provider [phone] Allergies No known active allergies Medications VENTOLIN [...] Immunization Administration Dates Next Due COVID-19 (Pre-01/01) [email or web address] Vaccine, Bivalent 12+ 01/14/2022,01/14/2022 COVID-19 (Pre-01/01) Pfizer [...] SCREENING (18-65 YEARS) 2011 PAP SMEAR 2014 INFLUENZA VACCINE (#1) 2024 , 01/19/2022, 01/07/2020, Additional history exists COVID-19 VACCINE (2024- season) 2024 01/14/2022, 01/14/2022, 09/14/2021, Additional history exists Adult [...] topic Medical Devices Not on file Insurance [facility] [place] [address] [address] [address] [place] [address] [address] [place] [address] [address] [address] [place] [address] [place] [address] ACO Member Subscriber Plan / Payer (Ef fective 2021-Present) Name:Viri Sanchez Relation to Subscriber:Self Name:Viri Sanchez Payer ID:[id number] Group ID:[id number] Type:Medicaid Address: [place] [id number] [facility] ACO [facility] ACO Care Teams Performance Management Consultant Relationship Specialty Start Date End Date Huong Aceves MD [facility] [place] [address] PCP - General Internal Medicine 10/03/21 Additional Source Comments The information contained in this document represents components of the legal health record. It is not the complete legal health record.[facility]
--- NOTE | 2025-01-14 07:59 | A.OFFVIS_ITS ---
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 Type Caster concerns: discharge with odor. History of BV. Regular monthly menses. Currently is not sexually active. STI screening offered; she accepts. She tries to eat healthy and stays active with exercise. Denies family history of breast, ovarian or colon cancer. Last pap smear 2023, negative. 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 Sexual orientation: Straight/Heterosexual Gender identity: Female Cognitive needs: No Hearing needs: No Vision needs: No Female Reproductive History Menstrual Duration of menses: 3-5 days Date of last menstrual period: 01/02/25 control method: none Total pregnancies: 1 Full term: 1 Number of Living Children: 1 Date of last pap smear: 01/08/24 (neg pap and hpv) Review of Systems Const All systems reviewed & are unremarkable except as noted in HPI and below Reports as per HPI Eyes Reports no additional complaints ENT Reports no additional complaints Card Reports no additional complaints Resp Reports no additional complaints GI Reports as per HPI and Reports no additional complaints Reports as per HPI Musc Reports no additional complaints Skin/Breast Reports as per HPI Neuro Reports no additional complaints Psych Reports no additional complaints Endo Reports no additional complaints Daniel/Lymph Reports no additional complaints Aller/Immun Reports no additional complaints Physical Exam Vital Signs: Last Vital Signs BP 100/66 01/14/25 08:01 BMI result Body Mass Index 50.8 Const General: cooperative, healthy appearing, no acute distress, well developed and alert Orientation/consciousness: patient oriented x3 HEENT Head: Yes normal to inspection Eyes General: appearance normal, both eyes and all related structures Neck Neck: Yes normal visual inspection Thyroid: Thyroid normal Chest Chest palpation & inspection: normal inspection of the chest and other (no puckering, dimpling, peau de orange, retraction, discharge, masses) Breast/axilla inspection: normal inspection of the breasts Breast/axilla palpation: normal palpation of the breasts Resp Effort & Inspection: normal respiratory effort GI Inspection: Yes normal to inspection Palpation (GI): Soft to palpation Rectal Exam - Female: deferred General: Yes bladder normal to palpation External Female Exam: normal external appearance and normal appearance of the ur ethra Speculum Exam - Vagina: normal appearance of the vagina, normal palpation and normal vaginal discharge Speculum Exam - Cervix: normal appearance of the cervix and normal palpation Bimanual exam- vagina & uterus: normal bimanual exam, normal palpation, uterine size normal, bladder normal to palpation, normal palpation and non-tender Bimanual Exam- Adnexa, other: no masses Skin General skin exam: no rashes or lesions noted Rashes: no rashes Neuro General: patient oriented x3 Cognition (Neuro): normal cognition Extrem General: Yes normal to inspection Psych Attitude: cooperative Thought process: Normal thought process present Assessment & Plan Assessment & Plan (1) Encounter for well woman exam with routine gynecological exam: Code(s): Z01.419 - Encounter for gynecological examination (general) (routine) without abnormal findings Category: Medical Plan Discussed: Current recommendations for pap smears per ASCCP guidelines. Breast awareness and periodic breast exams. Maintain a healthy lifestyle including a well balanced diet and routine exer cise. Use condoms for STI and prevention. Patient verbalizes understanding and agrees to the plan of care. She was given opportunity to ask questions and all questions were answered to the best of my ability. RTO in one year for annual bottom turning lathe turner examination. This note is constructed using voice recognition software. While every effort has been made to ensure accuracy, gerentological physiotherapist errors may have been included. Orders: Orders HIV Ab/Ag Today Z20.2 - Contact with and (suspected) exposure to infections with a predominantly sexual mode of transmission Hepatitis C Antibody Reflex Today Z20.2 - Contact with and (suspected) exposure to infections with a predominantly sexual mode of transmission Syphilis Screen Today Z20.2 - Contact with and (suspected) exposure to infections with a predominantly sexual mode of transmission Bacterial Vaginosis Panel Today N89.8 - Other specified noninflammatory disorders of vagina CT NG by PCR Vag/Cerv Today N89.8 - Other specified noninflammatory disorders of vagina Hepatitis B Core Antibody Today Z20.2 - Contact with and (suspected) exposure to infections with a predominantly sexual mode of transmission Coding Level of Care Code Est Pt Prev Care 18-39y([id number]) Diagnoses Encounter for well woman exam with routine gynecological exam Z01.419
[2025-01-14 08:01] VITALS: BP 100/66; BMI 50.8
== END 2025-01-14 08:35 | disposition home or self-care (01) ==
LOC: HO.HWS 07:53
PROVIDERS: PCP Internal Medicine; Visit Provider Advanced Practice Midwife
DX: Z01.419 Encounter for gynecological examination (general) (routine) without abnormal findings (principal)
CPT/HCPCS: 99395; 99459

== ENCOUNTER 2025-01-14 07:53 | Outpatient (REF) | payer OTHER, SELFPAY | END 2025-01-14 07:54 | disposition home or self-care (01) | LOC: HO.LAB 07:53 | PROVIDERS: PCP Internal Medicine; Visit Provider Advanced Practice Midwife | DX: Z01.419 Encounter for gynecological examination (general) (routine) without abnormal findings (principal) | CPT/HCPCS: 99395 ==

== ENCOUNTER 2025-01-14 08:19 | Outpatient (REF) | payer OTHER, SELFPAY ==
[2025-01-14 16:29] LABS: Bacterial Vaginosis PCR NEGATIVE (Negative); Candida Group PCR NOT DETECTED (Not Detect); Candida glab krusei PCR NOT DETECTED (Not Detect); Trichomonas vaginalis PCR NOT DETECTED (Not Detect)
[2025-01-14 16:58] LABS: CT PCR NOT DETECTED (Not Detect.); NG PCR NOT DETECTED (Not Detect.)
== END 2025-01-14 08:20 | disposition home or self-care (01) ==
LOC: HO.LNP 08:19
PROVIDERS: Visit Provider Advanced Practice Midwife
DX: K58.2 Mixed irritable bowel syndrome (principal); N89.8 Other specified noninflammatory disorders of vagina; K62.5 Hemorrhage of anus and rectum; J03.91 Acute recurrent tonsillitis, unspecified; F41.1 Generalized anxiety disorder; F32.0 Major depressive disorder, single episode, mild; E66.01 Morbid (severe) obesity due to excess calories; J45.20 Mild intermittent asthma, uncomplicated; F43.10 Post-traumatic stress disorder, unspecified; F41.0 Panic disorder [episodic paroxysmal anxiety]; Z83.79 Family history of other diseases of the digestive system; Z20.2 Contact with and (suspected) exposure to infections with a predominantly sexual mode of transmission; Z91.09 Other allergy status, other than to drugs and biological substances; Z79.899 Other long term (current) drug therapy; Z68.43 Body mass index [BMI] 50.0-59.9, adult
CPT/HCPCS: 81515; 87491; 87591; 99212

== ENCOUNTER 2025-01-14 09:37 | Outpatient (AMB) | payer OTHER, SELFPAY ==
[2025-01-14 09:39] VITALS: BP 100/66; PULSE 89; O2SAT 99; BMI 50.8
--- NOTE | 2025-01-14 09:39 | A.OFFPC_ITS ---
Vital Signs 01/14/25 09:39 Height 5 ft 2 in Weight 278 lb BMI 50.8 BP 100/66 Blood Pressure Location Rt brachial Position Sitting Pulse 89 Pulse Source Pulse Oximeter Pulse Oximetry (%) 99 Intake Visit Reasons: 3 month f/u Allergies venlafaxine Adverse Reaction (Mild, Verified 01/14/25 10:11) tiredness Medication List - Last Reconciled 01/14/25 by Huong Aceves MD albuterol sulfate 90 mcg/actuation (ProAir HFA) 1 inh inhalation QID PRN 30 days cetirizine (Zyrtec) 10 mg PO DAILY 90 days cholecalciferol (vitamin D3) 25 mcg PO DAILY 90 days cyclobenzaprine 10 mg PO .qhs PRN 90 days docusate sodium (Stool Softener) 500 mg (2 x 250 mg) PO BEDTIME 90 days ibuprofen 800 mg PO .qhs PRN 30 days lorazepam 0.5 mg PO ONCE PRN 90 days topiramate 50 mg PO BID 90 days Tobacco use date assessed: 08/01/24 Dental Screening Dental Screen Date: 08/01/24 HPI 3 month f/u HPI Details History The patient is a 29-year-old female presenting for follow-up and management of a nxiety, gastrointestinal complaints including diarrhea and rectal bleeding, and concerns about enlarged tonsils. Anxiety Disorder: - The patient reports that her anxiety l evel varies daily. - She experiences significant anxiety an d has had panic attacks while driving, particularly at night and in the rain, which she attributes to PTSD. - During a recent episode, she had to pu ll over. - She currently takes lorazepam as neede d and sometimes requires two pills on highly anxious days. - Past medication trials include buspiro ne, which was effective for about a year before it stopped working due to worsening anxiety, and venlafaxine. - She recalls trying another medication that caused excessive tiredness. - She also takes Topamax 50 mg daily, wh ich functions as a mood stabilizer and helps with her headaches. Irritable Bowel Syndrome with Mixed Bowel Habits and Anal Fissure: - The patient questions if she has IBS a nd reports alternating episodes of diarrhea and constipation. - She had diarrhea today, which caused h er to miss work. - She continues to see blood when wiping , which is a concern due to her family history of Crohn's disease. - A previous workup confirmed an anal fi ssure, not hemorrhoids, and this has been an ongoing issue with intermittent bleeding. - Her last colonoscopy and upper endosco py, performed about 10 years ago, were normal. - She takes a stool softener every day. Tonsillar Hypertrophy with Tonsilloliths: - The patient reports her tonsils are h uge and she frequently gets tonsil stones. - She also experiences a sensation of fo od getting stuck in her throat. - She was advised to have a tonsillectom y in the past due to recurrent strep throat but did not proceed because of fear. - She is concerned that her large tonsil s may cause swallowing issues as she ages. 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 - She commutes from [place] to [facility] on for work, which triggers her driving anxiety. - Family Status: She has a child who lyssa l start kindergarten next year. - Her 70-year-old father sometimes puma ts her with driving. - Nutritional Intake: The patient states she does not drink enough water. Family History: - Her oldest sister has a severe case of Crohn's disease requiring an ostomy bag. Problem List - Anxiety disorder - Irritable bowel syndrome with mixed carlos eduardo wel habits - Anal fissure with rectal bleeding - Tonsillar hypertrophy with tonsil ston es - Headaches - Hypotension Diagnostic results - A colonoscopy and upper endoscopy perf ormed approximately 10 years ago were normal. - A prior scoping procedure confirmed an anal fissure and ruled out hemorrhoids. Plan - A referral will be placed for a Gastro enterology consult to evaluate IBS symptoms, rectal bleeding, and family history of Crohn's disease. - A referral will be placed for an ENT c onsult to evaluate tonsillar hypertrophy and recurrent tonsil stones. - For anxiety management, the patient wi ll continue taking lorazepam as needed and will restart buspirone to take as an adjunct, especially on days with heightened anxiety. - A work note was provided for today's a bsence. - The patient was advised to increase fl uid intake to address her low blood pressure. - The patient was counseled to wait untjune, when she will have been at her job for one year, to apply for FMLA for anxiety-related absences. - Follow-up is scheduled in three months . Review of Systems no fever no chills neurological: No headaches no dizziness ear nose throat: No sore throat no hearing difficulty no ear pain cardiovascular: No syncope, no chest pain, no palpitations endocrine: No polyuria polydipsia no heat intolerance genitourinary: No dysuria skin: No new complaints Physical Exam general: No acute distress HEENT: Tonsils are large with presence of tonsil stones neck: Supple respiratory system: Able to talk in full sentences, no audible wheeze no stridor cardiovascular: S1-S2 RRR gastrointestinal: Diarrhea and constipation present, history of anal fissure with occasional bleeding extremities: No new findings 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 Sexual orientation: Straight/Heterosexual Gender identity: Female Cognitive needs: No Hearing needs: No Vision needs: No Questionnaire Thrive Questionnaire Date Thrive assessed: 04/30/24 I am a: Patient What is your living situation today?: I have a steady place to live Within the past 12 months, did the food you bought not last and you didn't have the money to get more?: Never true Within the past 12 months, did you worry whether your food would run out before you got money to buy more?: Never true Do you have trouble paying for medicines?: No Do you have trouble getting transportation to medical appointments?: No Do you have trouble paying your heating and electricity bill?: No Do you have trouble taking care of your child, family member or friend?: No Do you have trouble with day-to-day activities such as bathing, preparing meals, shopping, managing finances, etc.?: No Are you currently unemployed and looking for a job?: Yes Are you interested in more education?: No Please select the resources that you would like help with: Job search/training Currently or been in a relationship where the following occur: I choose not to answer THRIVE Score: 0 MARTHA-7 AMB Questionnaire MARTHA-7 Date MARTHA - 7 assessed: 05/07/24 Source: Developed by Drs. Robert Galaviz, Jenna Gamino, Chase Fonseca and colleagues, with an educational heather from [employer]. Physical exam (Primary Care) Vital Signs: Last Vital Signs Pulse 89 01/14/25 09:39 BP 100/66 01/14/25 09:39 Pulse Ox 99 01/14/25 09:39 BMI result Body Mass Index 50.8 Tobacco/Smoking Status: Tobacco use Status Tobacco use date assessed 08/01/24 01/14/25 09:40 Patient Tobacco Use Status Never used Tobacco 01/14/25 09:40 e-Cigarette/Vaping Use Never Used 01/14/25 09:40 Thrive Assessment: Date of Thrive Assessment Date Thrive assessed 04/30/24 01/14/25 09:40 Currently or been in a relationship where the following occur: I choose not to answer Coding Level of Care Code Est Pt Level 5 (52923) Diagnoses Family history of Crohn's disease Z83.79 Rectal bleeding K62.5 Alternating constipation and diarrhea R19.8 Recurrent tonsillitis J03.91 Anxiety, generalized F41.1 Current mild episode of major depressive disorder without prior episode F32.0 Major depression recurrence: single episode Active/Remission status: currently active Major depression episode severity: mild Morbid obesity due to excess calories E66.01 Environmental allergies Z91.09 Mild intermittent asthma without complication J45.20 Asthma severity: mild Asthma complication type: uncomplicated PTSD (post-traumatic stress disorder) F43.10 Panic disorder F41.0 Time Spent (min) 40 Comment review charr/ labs/ face to face / documentation / meds coordination Assessment & Plan Assessment & Plan (1) Family history of Crohn's disease: Code(s): Z83.79 - Family history of other diseases of the digestive system Category: Medical (2) Rectal bleeding: Code(s): K62.5 - Hemorrhage of anus and rectum Category: Medical (3) Alternating constipation and diarrhea: Code(s): R19.8 - Other specified symptoms and signs involving the digestive system and abdomen Category: Medical (4) Recurrent tonsillitis: Code(s): J03.91 - Acute recurrent tonsillitis, unspecified Category: Medical (5) Anxiety, generalized: Code(s): F41.1 - Generalized anxiety disorder Category: Medical (6) Major depressive disorder: Code(s): F32.9 - Major depressive disorder, single episode, unspecified Category: Medical Qualifiers: Major depression recurrence: single episode Active/Remission status: currently active Major depression episode severity: mild Qualified Code(s): F32.0 - Major depressive disorder, single episode, mild (7) Morbid obesity due to excess calories: Code(s): E66.01 - Morbid (severe) obesity due to excess calories Category: Medical (8) Environmental allergies: Code(s): Z91.09 - Other allergy status, other than to drugs and biological substances Category: Medical (9) Intermittent asthma: Code(s): J45.20 - Mild intermittent asthma, uncomplicated Category: Medical Qualifiers: Asthma severity: mild Asthma complication type: uncomplicated Qualified Code(s): J45.20 - Mild intermittent asthma, uncomplicated (10) PTSD (post-traumatic stress disorder): Code(s): F43.10 - Post-traumatic stress disorder, unspecified Category: Medical (11) Panic disorder: Code(s): F41.0 - Panic disorder [episodic paroxysmal anxiety] Category: Medical Plan Anxiety Disorder: - The patient reports that her anxiety level varies daily. - She experiences significant anxiety and has had panic attacks while driving, particularly at night and in the rain, which she attributes to PTSD. 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 - She currently takes lorazepam as needed and sometimes requires two pills on highly anxious days. - Past medication trials include buspirone, which was effective for about a year before it stopped working due to worsening anxiety, and venlafaxine. - She recalls trying another medication that caused excessive tiredness. - She also takes Topamax 50 mg daily, which functions as a mood stabilizer and helps with her headaches. Irritable Bowel Syndrome with Mixed Bowel Habits and Anal Fissure: - The patient questions if she has IBS and reports alternating episodes of diarrhea and constipation. - She had diarrhea today, which caused her to miss work. - She continues to see blood when wiping, which is a concern due to her family history of Crohn's disease. - A previous workup confirmed an anal fissure, not hemorrhoids, and this has been an ongoing issue with intermittent bleeding. - Her last colonoscopy and upper endoscopy, performed about 10 years ago, were normal. - She takes a stool softener every day. Tonsillar Hypertrophy with Tonsilloliths: - The patient reports her tonsils are huge and she frequently gets tonsil stones. - She also experiences a sensation of food getting stuck in her throat. - She was advised to have a tonsillectomy in the past due to recurrent strep throat but did not proceed because of fear. - She is concerned that her large tonsils may cause swallowing issues as she ages. 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 - She commutes from [place] to [place] for work, which triggers her driving anxiety. - Family Status: She has a child who will start kindergarten next year. - Her 70-year-old father sometimes assists her with driving. - Nutritional Intake: The patient states she does not drink enough water. Family History: - Her oldest sister has a severe case of Crohn's disease requiring an ostomy bag. Problem List - Anxiety disorder - Irritable bowel syndrome with mixed bowel habits - Anal fissure with rectal bleeding - Tonsillar hypertrophy with tonsil stones - Headaches - Hypotension Diagnostic results - A colonoscopy and upper endoscopy performed approximately 10 years ago were normal. - A prior scoping procedure confirmed an anal fissure and ruled out hemorrhoids. Plan - A referral will be placed for a Gastroenterology consult to evaluate IBS symptoms, rectal bleeding, and family history of Crohn's disease. - A referral will be placed for an ENT consult to evaluate tonsillar hypertrophy and recurrent tonsil stones. - For anxiety management, the patient will continue taking lorazepam as needed and will restart buspirone to take as an adjunct, especially on days with heightened anxiety. - A work note was provided for today's absence. - The patient was advised to increase fluid intake to address her low blood pressure. - The patient was counseled to wait until June, when she will have been at her job for one year, to apply for [place] for anxiety-related absences. - Follow-up is scheduled in three months. Orders: Referrals Gastroenterology Referral K62.5 - Hemorrhage of anus and rectum, R19.8 - Other specified symptoms and signs involving the digestive system and abdomen, Z83.79 - Family history of other diseases of the digestive system Ear/Nose/Throat Referral J03.91 - Acute recurrent tonsillitis, unspecified Medications: New buspirone 10 mg PO .qd PRN 30 tabs 2RF anxiety 30 days Changed From lorazepam further refills will require visit with your prescriber 0.5 mg PO ONCE 90 days PRN 90 tabs 0RF anxiety To lorazepam further refills will require visit with your prescriber 0.5 mg PO ONCE PRN 30 tabs 2RF anxiety 30 days Discontinued ibuprofen Discontinued Reason: Doctor's Order 800 mg PO .qhs 30 days PRN 30 tabs 0RF pain
== END 2025-01-14 10:12 | disposition home or self-care (01) ==
LOC: HO.HMCC 09:38
PROVIDERS: PCP Internal Medicine; Visit Provider Internal Medicine
DX: Z83.79 Family history of other diseases of the digestive system (principal); K62.5 Hemorrhage of anus and rectum; R19.8 Other specified symptoms and signs involving the digestive system and abdomen; J03.91 Acute recurrent tonsillitis, unspecified; F41.1 Generalized anxiety disorder; F32.0 Major depressive disorder, single episode, mild; E66.01 Morbid (severe) obesity due to excess calories; Z91.09 Other allergy status, other than to drugs and biological substances; J45.20 Mild intermittent asthma, uncomplicated; F43.10 Post-traumatic stress disorder, unspecified; F41.0 Panic disorder [episodic paroxysmal anxiety]